=== PATIENT | male | born 1940 | race Caucasian/White ===

== ENCOUNTER 2018-02-07 13:11 | Outpatient (CLI) | payer MEDICARE ==
[~2018-02-07 13:11] MED LIST: ACET-2119 PO; AMIO200T40 PO; ASCO500C15 PO; BACI28.33 TOP; BARIUM SULFATE 340 ML SUSP.RECON***PROCEDURE AREA ONLY**DONT ENTER PO ONE; DOCU-28 PO; FINA5TAB11 PO; FLO0.4C PO; GENTAMICIN CREAM TP; HYDR25SU32 RC; INSU100V12 SQ; IRON150C5 PO; MYCOL15CR TOP; ZINO TP
[2018-02-07] MEDS ORDERED: SIMETHICONE/SOD BICARB/CIT AC PACKET PO ONE ×2 (14:06)
== END 2018-02-07 23:59 | disposition home or self-care (01) ==
LOC: RAD 13:11
PROVIDERS: ATTEND Otolaryngology
DX: I69.391 Dysphagia following cerebral infarction (principal); R13.12 Dysphagia, oropharyngeal phase; I69.322 Dysarthria following cerebral infarction; J38.2 Nodules of vocal cords; K21.9 Gastro-esophageal reflux disease without esophagitis; I25.2 Old myocardial infarction; I10 Essential (primary) hypertension; E11.9 Type 2 diabetes mellitus without complications; Z87.891 Personal history of nicotine dependence; Z79.4 Long term (current) use of insulin
CPT/HCPCS: 74220; 74230

== ENCOUNTER 2018-04-11 14:48 | Inpatient (IN) | payer MEDICARE ==
[~2018-04-11] VITALS: Ht 152.4 cm; Wt 76.7 kg
[~2018-04-11 14:48] MED LIST changes: -BARIUM SULFATE 340 ML SUSP.RECON***PROCEDURE AREA ONLY**DONT ENTER PO ONE
[2018-04-11] MEDS ORDERED: ondansetron/PF 4mg/2ml inj IV ONE (15:10)
[2018-04-11] MEDS ORDERED: normal saline 1000ML IV soln IVB ONE (15:10)
[2018-04-11 16:27] LABS: BASOPHILS % (AUTO) 0.2 % (0-1); EOSINOPHILS # (AUTO) 0.2 X10'3 (0-0.9); EOSINOPHILS % (AUTO) 3.2 % (0-6); HEMATOCRIT 35.3 % (42.0-52.0); HEMOGLOBIN 11.6 g/dl (14.0-17.9); LYMPHOCYTES # (AUTO) 0.7 X10'3 (1.1-4.8); LYMPHOCYTES % (AUTO) 14.6 % (21-51); MEAN CORPUSCULAR HEMOGLOBIN 28.9 PG (27.0-31.0); MEAN CORPUSCULAR HGB CONC 32.9 % (33.0-36.5); MEAN CORPUSCULAR VOLUME 87.7 FL (78-98); MEAN PLATELET VOLUME 7.3 FL (7.4-10.4); MONOCYTES # (AUTO) 0.4 X10'3 (0-0.9); MONOCYTES % (AUTO) 8.2 % (2-12); NEUTROPHILS # (AUTO) 3.7 X10'3 (1.8-7.7); NEUTROPHILS % (AUTO) 73.8 % (42-75); PLATELET COUNT 185 X10'3 (140-440); RED BLOOD COUNT 4.03 X10'6 (4.70-6.10); RED CELL DISTRIBUTION WIDTH 17.8 % (11.5-14.5); WHITE BLOOD COUNT 5.1 X10'3 (4.5-11.0)
[2018-04-11 17:07] LABS: CLARITY,URINE CLOUDY (Clear); COLOR,URINE YELLOW (Yellow); GLUCOSE, URINE NEGATIVE (Neg); KETONES,URINE NEGATIVE (Neg); LEUKOCYTE ESTERASE ,URINE LARGE (Neg); NITRITES, URINE NEGATIVE (Neg); OCCULT BLOOD,URINE LARGE (Neg); PH,URINE 5.5 (4.8-8.0); PROTEIN,URINE TRACE mg/dl (Neg); UROBILINOGEN,URINE 0.2 E.U/dL (0.2-1.0)
[2018-04-11 17:07] LABS: ALANINE AMINOTRANSFERASE 36 U/L (12-78); ALBUMIN 1.8 G/DL (3.4-5.0); ALBUMIN/GLOBULIN RATIO 0.2 (1.1-1.5); ALKALINE PHOSPHATASE 101 IU/L (46-116); ANION GAP 23 (8-16); ASPARTATE AMINO TRANSFERASE 30 U/L (10-37); BILIRUBIN,TOTAL 0.3 MG/DL (0.1-1.0); BLOOD UREA NITROGEN 101 MG/DL (7-18); BUN/CREATININE RATIO 10.5 (5.4-32.0); CALCIUM 9.4 MG/DL (8.5-10.1); CHLORIDE 93 MMOL/L (99-107); CREATININE 9.62 MG/DL (0.60-1.10); GLUCOSE 162 MG/DL (70-104); LIPASE 340 U/L (73-393); POTASSIUM 4.6 MMOL/L (3.5-5.1); SODIUM 135 MMOL/L (135-145); TOTAL CARBON DIOXIDE 19.5 MMOL/L (24-32); TOTAL PROTEIN 10.1 G/DL (6.4-8.2); TROPONIN I < 0.04 NG/ML (0.0-0.05); eGFR 5 ML/MIN
[2018-04-11 17:08] LABS: ETHANOL < 0.010 GM/DL (0.0-0.010)
[2018-04-11 17:10] LABS: UA COLLECTION TYPE CLN CATCH MIDSTREAM
[2018-04-11] MEDS ORDERED: normal saline 1000ML IV soln IV ONE (17:10)
[2018-04-11] MEDS ORDERED: CefTRIAXone/D5W-Rocephin 1gm 50 ML IV ONE (17:15)
[2018-04-11 17:18] LABS: WBC,URINE TNTC /HPF (0-4)
[2018-04-11 17:19] LABS: BACTERIA,URINE FEW /HPF (Neg); MUCUS STRANDS NONE SEEN /LPF (Neg); SQUAMOUS EPITHELIAL CELL,UR NONE SEEN /LPF (FEW); TRANSITIONAL EPI CELLS,URINE FEW /HPF; WBC CLUMPS,URINE MANY /HPF (NEGATIVE)
[2018-04-11] MEDS ORDERED: normal saline 1000ml 1,000 ML IV SCH (17:32)
[2018-04-11] MEDS ORDERED: glucagon, human recombinant 1mg kit SUBCUT PRN (17:35)
[2018-04-11] MEDS ORDERED: dextrose 50%-water 50ml dispensing syringe IV PRN ×2 (17:35)
[2018-04-11] MEDS ORDERED: dextrose ORAL solution 15 GM/59 ML bottle PO PRN (17:35)
[2018-04-11] MEDS ORDERED: acetaminophen 325mg tablet PO PRN (17:35)
[2018-04-11] MEDS ORDERED: mag hydrox/Alum hydrox/simeth 30ml oral suspension PO PRN (17:35)
[2018-04-11] MEDS ORDERED: MESSAGE TO PHARMACY PO ONE (17:35)
[2018-04-11] MEDS ORDERED: ondansetron/PF 4mg/2ml inj IV PRN (17:35)
[2018-04-11 17:59] LABS: PROTHROMBIN TIME 43.9 SECONDS (9.0-12.0)
[2018-04-11 18:00] LABS: INR 4.7 INR
--- NOTE | 2018-04-11 18:02 | NUR ---
LAB CALLED WITH WITH CRITICAL VALUE PT 43.9 AND INR 4.7. BLANCA BUCKLEY INFORMED.
[2018-04-11 18:08] LABS: HEMOGLOBIN A1C 7.7 % (4.5-6.2)
[2018-04-11] MEDS ORDERED: METF500T PO (18:51)
--- NOTE | 2018-04-11 19:58 | NUR ---
Call to Dr. Alvarenga to explain patient is having midstrenal CP reproducable W/ palpation. New order EKG now given ASA 324, Nitro 0.4mg PRN for CP, troponin Q6hrs x3.
[2018-04-11] MEDS: docusate sod 100mg capsule PO SCH (20:00)
[2018-04-11] MEDS: gentamicin 0.1% topical ointment 15gm TP SCH (20:00)
[2018-04-11] MEDS: zinc oxide ointment 30gm tube TP SCH (20:00)
[2018-04-11] MEDS: sodium bicarbonate (8.4%) inj. 100 MEQ in dextrose 5%-water 1,000 ML IV SCH (20:30)
[2018-04-11] MEDS: insulin glargine (Lantus) pen - multi-dose SQ SCH (21:00)
[2018-04-11] MEDS ORDERED: aspirin 81mg tab.chew PO ONE (21:45)
--- NOTE | 2018-04-11 21:45 | NUR ---
Patient in room [facility]. I have received report from ERNESTO Brand and had the opportunity to ask questions and assume patient care.
[2018-04-11 22:00] VITALS: BP 147/64
[2018-04-11] MEDS: lactobacillus rhamnosus 10,000 MMU CELLS/CAPSULE PO SCH (23:15)
--- NOTE | 2018-04-12 01:45 | NUR ---
Patient in room [facility]. I have received report from ERNESTO Restrepo and had the opportunity to ask questions and assume patient care. Addendum: 04/12/18 at 0347 by Abhinav Saucedo RN wrong patient
[2018-04-12] MEDS: sodium bicarbonate (8.4%) inj. 100 MEQ in dextrose 5%-water 1,000 ML IV SCH ×4 (03:27→20:25)
[2018-04-12 05:10] LABS: BASOPHILS % (AUTO) 0.2 % (0-1); EOSINOPHILS # (AUTO) 0.1 X10'3 (0-0.9); EOSINOPHILS % (AUTO) 2.3 % (0-6); LYMPHOCYTES # (AUTO) 0.9 X10'3 (1.1-4.8); LYMPHOCYTES % (AUTO) 16.4 % (21-51); MEAN CORPUSCULAR HEMOGLOBIN 29.1 PG (27.0-31.0); MEAN CORPUSCULAR HGB CONC 33.3 % (33.0-36.5); MEAN CORPUSCULAR VOLUME 87.4 FL (78-98); MEAN PLATELET VOLUME 7.9 FL (7.4-10.4); MONOCYTES # (AUTO) 0.4 X10'3 (0-0.9); MONOCYTES % (AUTO) 8.2 % (2-12); NEUTROPHILS # (AUTO) 3.9 X10'3 (1.8-7.7); NEUTROPHILS % (AUTO) 72.9 % (42-75); PLATELET COUNT 169 X10'3 (140-440); RED BLOOD COUNT 2.75 X10'6 (4.70-6.10); RED CELL DISTRIBUTION WIDTH 17.1 % (11.5-14.5); WHITE BLOOD COUNT 5.4 X10'3 (4.5-11.0)
[2018-04-12 05:31] LABS: ALBUMIN 1.3 G/DL (3.4-5.0); ANION GAP 16 (8-16); BLOOD UREA NITROGEN 87 MG/DL (7-18); BUN/CREATININE RATIO 10.8 (5.4-32.0); CALCIUM 8.2 MG/DL (8.5-10.1); CHLORIDE 97 MMOL/L (99-107); CREATININE 8.06 MG/DL (0.60-1.10); GLUCOSE 192 MG/DL (70-104); LACTATE DEHYDROGENASE 217 U/L (85-227); MAGNESIUM 2.1 MG/DL (1.5-2.4); PHOSPHORUS 3.6 MG/DL (2.3-4.5); POTASSIUM 4.5 MMOL/L (3.5-5.1); SODIUM 134 MMOL/L (135-145); TOTAL CARBON DIOXIDE 21.2 MMOL/L (24-32); TROPONIN I 0.36 NG/ML (0.0-0.05); eGFR 7 ML/MIN
--- NOTE | 2018-04-12 06:30 | NUR ---
Patient in room [facility]. I have received report from Abhinav OROZCO and had the opportunity to ask questions and assume patient care.
--- NOTE | 2018-04-12 06:55 | NUR ---
Night RN said that patient's blood sugar last night was 190 mg/dl around 21:00 - was not recorded so I am writing it down here
[2018-04-12 07:00] VITALS: BP 130/52
[2018-04-12] MEDS: zinc oxide ointment 30gm tube TP SCH ×2 (08:00→19:36)
[2018-04-12] MEDS: docusate sod 100mg capsule PO SCH ×2 (08:00→19:36)
[2018-04-12] MEDS: gentamicin 0.1% topical ointment 15gm TP SCH (08:00)
[2018-04-12] MEDS: CefTRIAXone/D5W-Rocephin 1gm 50 ML IV SCH (08:56)
[2018-04-12] MEDS: sevelamer carbonate 800mg tablet PO SCH ×3 (08:57→19:39)
[2018-04-12] MEDS: ascorbic acid 500mg tablet PO SCH (08:57)
[2018-04-12] MEDS: lactobacillus rhamnosus 10,000 MMU CELLS/CAPSULE PO SCH ×2 (08:57→19:30)
[2018-04-12] MEDS: tamsulosin 0.4mg capsule PO SCH (08:57)
[2018-04-12] MEDS: amiodarone 200mg tablet PO SCH (08:57)
[2018-04-12] MEDS: iron polysaccharide complex 150mg capsule PO SCH (08:58)
[2018-04-12] MEDS ORDERED: epoetin 20,000 units/ml inj SQ ONE (09:40)
--- NOTE | 2018-04-12 09:57 | NUR ---
Blood sugar this am was 198 mg/dl, would start on hyperglycemic protocol but humalog insulin not available. Message sent to pharmacy
[2018-04-12 11:00] VITALS: BP 108/52
--- NOTE | 2018-04-12 12:45 | NUR ---
Spoke to patient's son John (POA) updated him about patient's status and told him about the possibility of hemodialysis per kidney doctor. Per patient's son, patient's roommate/friend Juan is okay to receive information about patient's status. Patient's friend Juan came by and said that son John will be the one doing consent if needed
[2018-04-12] MEDS: finasteride 5mg tablet PO SCH (12:46)
[2018-04-12] MEDS: insulin Lispro (HumaLOG) vial - multi-dose SQ SCH (14:44)
--- NOTE | 2018-04-12 16:28 | NUR ---
DM consult: Pt with A1c 7.7. Attempted visit with pt at bedside however pt unavailable. Pt with diabetic ulcer to left lateral foot, will f/u with pt for DM and protein education. [place] consult: Pt reports wt loss of 6 # in this last month. Patient's current wt is up 8# from documented wt of 176# at previous visit 03/24/17. If pt truly lost 6# in 1 month this is non-severe wt loss of 4%. Pt with no documented edema. Pt currently on CHO controlled diet meeting nutrient needs. Pt currently does not meet criteria for malnutrition. [facility] 04/12. Will continue to follow. Addendum: 04/12/18 at [address] Amended: Links added.
[2018-04-12 18:00] VITALS: BP 121/59
--- NOTE | 2018-04-12 18:30 | NUR ---
Patient in room [facility]. I have received report from Wu OROZCO and had the opportunity to ask questions and assume patient care.
--- NOTE | 2018-04-12 18:42 | NUR ---
Problems reprioritized. Patient report given, questions answered & plan of care reviewed with Jennifer OROZCO.
[2018-04-12] MEDS: insulin glargine (Lantus) pen - multi-dose SQ SCH (21:36)
[2018-04-13] VITALS: BP 118/76
[2018-04-13] MEDS: acetaminophen 325mg tablet PO PRN ×2 (01:23→21:54)
[2018-04-13] MEDS: sodium bicarbonate (8.4%) inj. 100 MEQ in dextrose 5%-water 1,000 ML IV SCH ×3 (01:48)
--- NOTE | 2018-04-13 06:43 | NUR ---
Problems reprioritized. Patient report given, questions answered & plan of care reviewed with Becka OROZCO.
[2018-04-13 06:54] LABS: BASOPHILS % (AUTO) 0.4 % (0-1); EOSINOPHILS # (AUTO) 0.1 X10'3 (0-0.9); EOSINOPHILS % (AUTO) 2.8 % (0-6); HEMATOCRIT 24.9 % (42.0-52.0); HEMOGLOBIN 8.2 g/dl (14.0-17.9); LYMPHOCYTES # (AUTO) 0.8 X10'3 (1.1-4.8); LYMPHOCYTES % (AUTO) 16.9 % (21-51); MEAN CORPUSCULAR HEMOGLOBIN 28.4 PG (27.0-31.0); MEAN CORPUSCULAR HGB CONC 32.9 % (33.0-36.5); MEAN CORPUSCULAR VOLUME 86.2 FL (78-98); MEAN PLATELET VOLUME 7.7 FL (7.4-10.4); MONOCYTES # (AUTO) 0.5 X10'3 (0-0.9); MONOCYTES % (AUTO) 9.2 % (2-12); NEUTROPHILS # (AUTO) 3.5 X10'3 (1.8-7.7); NEUTROPHILS % (AUTO) 70.7 % (42-75); PLATELET COUNT 146 X10'3 (140-440); RED BLOOD COUNT 2.88 X10'6 (4.70-6.10); RED CELL DISTRIBUTION WIDTH 16.6 % (11.5-14.5); WHITE BLOOD COUNT 4.9 X10'3 (4.5-11.0)
[2018-04-13 07:53] VITALS: BP 120/55
[2018-04-13] MEDS: CefTRIAXone/D5W-Rocephin 1gm 50 ML IV SCH (07:56)
[2018-04-13] MEDS: sevelamer carbonate 800mg tablet PO SCH ×3 (07:57→18:14)
[2018-04-13] MEDS: tamsulosin 0.4mg capsule PO SCH ×2 (07:57→20:32)
[2018-04-13] MEDS: docusate sod 100mg capsule PO SCH ×2 (07:57→20:32)
[2018-04-13] MEDS: amiodarone 200mg tablet PO SCH (07:58)
[2018-04-13] MEDS: iron polysaccharide complex 150mg capsule PO SCH (07:58)
[2018-04-13] MEDS: lactobacillus rhamnosus 10,000 MMU CELLS/CAPSULE PO SCH ×2 (07:58→20:31)
[2018-04-13] MEDS: finasteride 5mg tablet PO SCH (07:59)
[2018-04-13] MEDS: ascorbic acid 500mg tablet PO SCH (07:59)
[2018-04-13] MEDS: zinc oxide ointment 30gm tube TP SCH ×2 (08:00→20:00)
[2018-04-13 08:41] LABS: ALBUMIN 1.2 G/DL (3.4-5.0); BLOOD UREA NITROGEN 73 MG/DL (7-18); BUN/CREATININE RATIO 10.6 (5.4-32.0); CALCIUM 7.2 MG/DL (8.5-10.1); CREATININE 6.88 MG/DL (0.60-1.10); GLUCOSE 154 MG/DL (70-104); MAGNESIUM 1.5 MG/DL (1.5-2.4); PHOSPHORUS 2.5 MG/DL (2.3-4.5); eGFR 8 ML/MIN
[2018-04-13 09:01] LABS: CHLORIDE 91 MMOL/L (99-107); POTASSIUM 3.5 MMOL/L (3.5-5.1); SODIUM 133 MMOL/L (135-145)
[2018-04-13 09:21] LABS: ANION GAP 12 (8-16); TOTAL CARBON DIOXIDE 30.5 MMOL/L (24-32)
[2018-04-13] MEDS: insulin Lispro (HumaLOG) vial - multi-dose SQ SCH ×2 (10:20→13:22)
[2018-04-13 11:18] VITALS: BP 129/60
[2018-04-13] MEDS ORDERED: normal saline 1000ml 100 ML IV PRN (13:17)
[2018-04-13] MEDS ORDERED: epoetin 20,000 units/ml inj IV ONE (13:20)
[2018-04-13] MEDS ORDERED: LIDOcaine 1%/PF 5ML 10 MG/ML VIAL ONE ×2 (13:24→14:03)
--- NOTE | 2018-04-13 13:30 | NUR ---
Patient back from IR received a Hermes Cath for temporary dialysis. Per Tisha GU RN no medication was given in IR. Patient alert and stable.
[2018-04-13] MEDS ORDERED: phytonadione inj. 5 MG in normal saline 100ml IV soln 99.5 ML IV ONE (13:35)
[2018-04-13 13:39] LABS: TOTAL PROTEIN,URINE RANDOM 30.4 MG/DL
[2018-04-13] MEDS ORDERED: heparin 1,000unit/ml 10ml vial 10 ML ONE (14:04)
[2018-04-13 15:46] LABS: UA EOSINOPHILS NO EOS /HPF
[2018-04-13] MEDS: dextrose ORAL solution 15 GM/59 ML bottle PO PRN ×2 (17:19→17:35)
--- NOTE | 2018-04-13 17:28 | NUR ---
Paatient had a blood sugar of 66 15 mg of dex 4 given PO
--- NOTE | 2018-04-13 17:50 | NUR ---
Michele callahan RD for written/verbal DM ed. DAVID contact information provided. Addendum: 04/13/18 at [address] Amended: Links added.
--- NOTE | 2018-04-13 17:54 | NUR ---
Patients blood sugar was 64 after the first 15 mg of dex 4. Patients blood sugar was 85 after the second dose of Dex 4 patient alert and oriented.
[2018-04-13 18:00] VITALS: BP 132/51
--- NOTE | 2018-04-13 18:15 | NUR ---
Patient in room [facility]. I have received report from Becka OROZCO and had the opportunity to ask questions and assume patient care.
--- NOTE | 2018-04-13 18:15 | NUR ---
Problems reprioritized. Patient report given, Jennifer OROZCO questions answered & plan of care reviewed with . Patient in be finishing dinner
[2018-04-13] MEDS ORDERED: heparin 1,000 units/ml 10ml inj HE ONE ×2 (19:50)
[2018-04-13] MEDS: insulin glargine (Lantus) pen - multi-dose SQ SCH (21:56)
[2018-04-14] VITALS: BP 100/51
--- NOTE | 2018-04-14 00:09 | NUR ---
Problems reprioritized. Patient report given, questions answered & plan of care reviewed with Carly OROZCO.
--- NOTE | 2018-04-14 00:15 | NUR ---
Patient in room [facility]. I have received report from DOV OROZCO and had the opportunity to ask questions and assume patient care.
[2018-04-14 05:15] LABS: COMPLEMENT C4, SERUM 27 mg/dL (14-44)
--- NOTE | 2018-04-14 06:14 | NUR ---
Problems reprioritized. Patient report given, questions answered & plan of care reviewed with SALIMA OROZCO.
[2018-04-14 06:46] VITALS: BP 127/73
[2018-04-14 06:46] LABS: ALBUMIN 1.2 G/DL (3.4-5.0); ANION GAP 11 (8-16); BASOPHILS % (AUTO) 0.2 % (0-1); BLOOD UREA NITROGEN 56 MG/DL (7-18); BUN/CREATININE RATIO 10.1 (5.4-32.0); CHLORIDE 94 MMOL/L (99-107); CREATININE 5.57 MG/DL (0.60-1.10); EOSINOPHILS # (AUTO) 0.1 X10'3 (0-0.9); EOSINOPHILS % (AUTO) 1.6 % (0-6); GLUCOSE 74 MG/DL (70-104); HEMATOCRIT 29.2 % (42.0-52.0); HEMOGLOBIN 9.8 g/dl (14.0-17.9); LYMPHOCYTES # (AUTO) 0.7 X10'3 (1.1-4.8); MAGNESIUM 1.7 MG/DL (1.5-2.4); MEAN CORPUSCULAR HEMOGLOBIN 29.6 PG (27.0-31.0); MEAN CORPUSCULAR HGB CONC 33.5 % (33.0-36.5); MEAN CORPUSCULAR VOLUME 88.4 FL (78-98); MEAN PLATELET VOLUME 8.3 FL (7.4-10.4); MONOCYTES # (AUTO) 0.4 X10'3 (0-0.9); NEUTROPHILS # (AUTO) 5.4 X10'3 (1.8-7.7); NEUTROPHILS % (AUTO) 81.2 % (42-75); PHOSPHORUS 2.6 MG/DL (2.3-4.5); PLATELET COUNT 139 X10'3 (140-440); POTASSIUM 3.9 MMOL/L (3.5-5.1); RED BLOOD COUNT 3.31 X10'6 (4.70-6.10); RED CELL DISTRIBUTION WIDTH 16.3 % (11.5-14.5); SODIUM 136 MMOL/L (135-145); TOTAL CARBON DIOXIDE 31.2 MMOL/L (24-32); WHITE BLOOD COUNT 6.7 X10'3 (4.5-11.0); eGFR 10 ML/MIN
[2018-04-14 06:57] LABS: INR 2.7 INR; PARTIAL THROMBOPLASTIN TIME 56 SECONDS (22-32); PROTHROMBIN TIME 26.4 SECONDS (9.0-12.0)
[2018-04-14 07:10] LABS: IMMUNOGLOBULIN A, QN, SERUM 3527 mg/dL (61-437); IMMUNOGLOBULIN G, QN, SERUM 208 mg/dL (700-1600); IMMUNOGLOBULIN M, QN, SERUM 11 mg/dL (15-143)
[2018-04-14] MEDS: sevelamer carbonate 800mg tablet PO SCH ×3 (08:00→18:02)
[2018-04-14] MEDS: docusate sod 100mg capsule PO SCH ×2 (08:09→20:06)
[2018-04-14] MEDS: amiodarone 200mg tablet PO SCH (08:09)
[2018-04-14] MEDS: CefTRIAXone/D5W-Rocephin 1gm 50 ML IV SCH (08:09)
[2018-04-14] MEDS: ascorbic acid 500mg tablet PO SCH (08:09)
[2018-04-14] MEDS: finasteride 5mg tablet PO SCH (08:14)
[2018-04-14] MEDS: zinc oxide ointment 30gm tube TP SCH ×2 (08:14→20:06)
[2018-04-14] MEDS: iron polysaccharide complex 150mg capsule PO SCH ×2 (08:14→08:19)
[2018-04-14] MEDS: tamsulosin 0.4mg capsule PO SCH ×2 (08:19→20:06)
[2018-04-14] MEDS: lactobacillus rhamnosus 10,000 MMU CELLS/CAPSULE PO SCH ×2 (08:19→20:06)
[2018-04-14 11:30] VITALS: BP 102/52
--- NOTE | 2018-04-14 18:55 | NUR ---
gave report to roro springer
--- NOTE | 2018-04-14 18:56 | NUR ---
Patient in room [facility]. I have received report from SALIMA OROZCO and had the opportunity to ask questions and assume patient care.
[2018-04-14 19:00] VITALS: BP 130/68
[2018-04-14] MEDS: insulin glargine (Lantus) pen - multi-dose SQ SCH (21:35)
--- NOTE | 2018-04-14 23:40 | NUR ---
Pt. was not able to urinate, bladder scan done, 265 cc noted, then Pt. voided 100 cc.
[2018-04-15] VITALS: BP 132/64
--- NOTE | 2018-04-15 05:47 | NUR ---
Voided 150 cc, bladder scan 315 cc.
[2018-04-15 06:12] LABS: BASOPHILS # (AUTO) 0.1 X10'3 (0-0.2); BASOPHILS % (AUTO) 1.2 % (0-1); EOSINOPHILS # (AUTO) 0.1 X10'3 (0-0.9); EOSINOPHILS % (AUTO) 1.4 % (0-6); HEMOGLOBIN 10.2 g/dl (14.0-17.9); LYMPHOCYTES # (AUTO) 0.6 X10'3 (1.1-4.8); LYMPHOCYTES % (AUTO) 11.3 % (21-51); MEAN CORPUSCULAR HEMOGLOBIN 28.2 PG (27.0-31.0); MEAN CORPUSCULAR HGB CONC 31.9 % (33.0-36.5); MEAN CORPUSCULAR VOLUME 88.3 FL (78-98); MEAN PLATELET VOLUME 8.2 FL (7.4-10.4); MONOCYTES # (AUTO) 0.3 X10'3 (0-0.9); MONOCYTES % (AUTO) 5.9 % (2-12); NEUTROPHILS # (AUTO) 4.6 X10'3 (1.8-7.7); NEUTROPHILS % (AUTO) 80.2 % (42-75); PLATELET COUNT 159 X10'3 (140-440); RED BLOOD COUNT 3.62 X10'6 (4.70-6.10); RED CELL DISTRIBUTION WIDTH 16.7 % (11.5-14.5); WHITE BLOOD COUNT 5.7 X10'3 (4.5-11.0)
[2018-04-15 06:21] LABS: PARTIAL THROMBOPLASTIN TIME 49 SECONDS (22-32); PROTHROMBIN TIME 19.5 SECONDS (9.0-12.0)
[2018-04-15 06:24] LABS: ALANINE AMINOTRANSFERASE 26 U/L (12-78); ALBUMIN 1.2 G/DL (3.4-5.0); ALBUMIN/GLOBULIN RATIO 0.2 (1.1-1.5); ALKALINE PHOSPHATASE 85 IU/L (46-116); ANION GAP 11 (8-16); ASPARTATE AMINO TRANSFERASE 33 U/L (10-37); BILIRUBIN,TOTAL 0.3 MG/DL (0.1-1.0); BLOOD UREA NITROGEN 56 MG/DL (7-18); BUN/CREATININE RATIO 9.9 (5.4-32.0); CALCIUM 8.5 MG/DL (8.5-10.1); CHLORIDE 94 MMOL/L (99-107); CREATININE 5.68 MG/DL (0.60-1.10); GLUCOSE 106 MG/DL (70-104); MAGNESIUM 1.8 MG/DL (1.5-2.4); PHOSPHORUS 2.6 MG/DL (2.3-4.5); SODIUM 135 MMOL/L (135-145); TOTAL CARBON DIOXIDE 30.2 MMOL/L (24-32); TOTAL PROTEIN 8.1 G/DL (6.4-8.2); eGFR 10 ML/MIN
[2018-04-15 06:34] LABS: POTASSIUM 4.1 MMOL/L (3.5-5.1)
--- NOTE | 2018-04-15 06:50 | NUR ---
Problems reprioritized. Patient report given, questions answered & plan of care reviewed with Ceci James.
--- NOTE | 2018-04-15 06:55 | NUR ---
I have received report from David OROZCO and had the opportunity to ask questions and assume patient care.
[2018-04-15 07:08] VITALS: BP 138/69
[2018-04-15] MEDS: CefTRIAXone/D5W-Rocephin 1gm 50 ML IV SCH (07:43)
[2018-04-15] MEDS: ascorbic acid 500mg tablet PO SCH (07:44)
[2018-04-15] MEDS: finasteride 5mg tablet PO SCH (07:44)
[2018-04-15] MEDS: lactobacillus rhamnosus 10,000 MMU CELLS/CAPSULE PO SCH ×2 (07:45→19:09)
[2018-04-15] MEDS: docusate sod 100mg capsule PO SCH ×2 (07:45→19:09)
[2018-04-15] MEDS: tamsulosin 0.4mg capsule PO SCH ×3 (07:45→20:52)
[2018-04-15] MEDS: sevelamer carbonate 800mg tablet PO SCH ×3 (07:45→19:09)
[2018-04-15] MEDS: zinc oxide ointment 30gm tube TP SCH ×2 (08:00→19:10)
[2018-04-15] MEDS: amiodarone 200mg tablet PO SCH (08:05)
--- NOTE | 2018-04-15 09:41 | NUR ---
Patient states that he eats slow and just finished, correctional insulin will be given now.
[2018-04-15] MEDS: insulin Lispro (HumaLOG) vial - multi-dose SQ SCH ×2 (09:46→14:26)
[2018-04-15 12:00] VITALS: BP 110/56
--- NOTE | 2018-04-15 13:20 | NUR ---
Initial: Pt PO 75% avg renal/carb controlled meals.. Will need long-term HD per MD note for renal failure. Likely multiple myeloma per MD note. LBM 04/14 on colace. Will continue to monitor. Rec: 1. continue carb controlled/renal diet 2. monitor for ONS needs 3. wt per rx Addendum: 04/15/18 at [address] Amended: Links added.
--- NOTE | 2018-04-15 16:01 | NUR ---
bladder scan post void 403
[2018-04-15] MEDS ORDERED: levoFLOXACIN-Levaquin 500mg/D5 100 ML IV ONE (16:30)
[2018-04-15] MEDS: ipratropium/albuterol 3ml nebule NEB SCH ×3 (17:30→23:42)
[2018-04-15 18:00] VITALS: BP 126/65
--- NOTE | 2018-04-15 18:18 | NUR ---
Problems reprioritized. Patient report given, questions answered & plan of care reviewed with Jennifer OROZCO.
--- NOTE | 2018-04-15 18:30 | NUR ---
Patient in room [facility]. I have received report from Ceci OROZCO and had the opportunity to ask questions and assume patient care.
[2018-04-15] MEDS: acetaminophen 325mg tablet PO PRN (19:10)
[2018-04-15] MEDS: insulin glargine (Lantus) pen - multi-dose SQ SCH (21:20)
[2018-04-16] VITALS (7 sets, daily range): BP systolic 96–114; BP diastolic 51–92
[2018-04-16] MEDS: ipratropium/albuterol 3ml nebule NEB SCH ×6 (03:37→23:00)
--- NOTE | 2018-04-16 04:05 | NUR ---
Voided 100ml, bladder scan showed 497ml. Patient stated he is not uncomfortable and refused straight cath. Will reassess in 1 hour.
--- NOTE | 2018-04-16 05:02 | NUR ---
Bladder scan showed 506ml. Explained to pt he might feel better if his bladder was emptying, pt states not uncomfortable. Pt refused straight cath for a second time.
[2018-04-16 05:24] LABS: BASOPHILS % (AUTO) 0.3 % (0-1); EOSINOPHILS # (AUTO) 0.1 X10'3 (0-0.9); EOSINOPHILS % (AUTO) 1.3 % (0-6); HEMATOCRIT 26.6 % (42.0-52.0); HEMOGLOBIN 8.9 g/dl (14.0-17.9); LYMPHOCYTES # (AUTO) 0.9 X10'3 (1.1-4.8); LYMPHOCYTES % (AUTO) 17.9 % (21-51); MEAN CORPUSCULAR HEMOGLOBIN 29.9 PG (27.0-31.0); MEAN CORPUSCULAR HGB CONC 33.7 % (33.0-36.5); MEAN CORPUSCULAR VOLUME 88.8 FL (78-98); MEAN PLATELET VOLUME 8.1 FL (7.4-10.4); MONOCYTES # (AUTO) 0.4 X10'3 (0-0.9); MONOCYTES % (AUTO) 9.4 % (2-12); NEUTROPHILS # (AUTO) 3.4 X10'3 (1.8-7.7); NEUTROPHILS % (AUTO) 71.1 % (42-75); PLATELET COUNT 137 X10'3 (140-440); RED BLOOD COUNT 2.99 X10'6 (4.70-6.10); RED CELL DISTRIBUTION WIDTH 16.5 % (11.5-14.5); WHITE BLOOD COUNT 4.8 X10'3 (4.5-11.0)
[2018-04-16 05:55] LABS: ALBUMIN 1.1 G/DL (3.4-5.0); ANION GAP 11 (8-16); BLOOD UREA NITROGEN 52 MG/DL (7-18); BUN/CREATININE RATIO 9.5 (5.4-32.0); CHLORIDE 95 MMOL/L (99-107); CREATININE 5.49 MG/DL (0.60-1.10); GLUCOSE 86 MG/DL (70-104); MAGNESIUM 1.7 MG/DL (1.5-2.4); PHOSPHORUS 2.3 MG/DL (2.3-4.5); POTASSIUM 3.8 MMOL/L (3.5-5.1); SODIUM 135 MMOL/L (135-145); TOTAL CARBON DIOXIDE 29.5 MMOL/L (24-32); eGFR 10 ML/MIN
[2018-04-16 06:11] LABS: INR 1.6 INR; PARTIAL THROMBOPLASTIN TIME 48 SECONDS (22-32); PROTHROMBIN TIME 15.9 SECONDS (9.0-12.0)
--- NOTE | 2018-04-16 06:30 | NUR ---
Patient in room [facility]. I have received report from ERNESTO MONAE and had the opportunity to ask questions and assume patient care.
--- NOTE | 2018-04-16 06:34 | NUR ---
Problems reprioritized. Patient report given, questions answered & plan of care reviewed with Madiha OROZCO.
[2018-04-16] MEDS: lactobacillus rhamnosus 10,000 MMU CELLS/CAPSULE PO SCH ×2 (07:42→21:40)
[2018-04-16] MEDS: iron polysaccharide complex 150mg capsule PO SCH (07:42)
[2018-04-16] MEDS: sevelamer carbonate 800mg tablet PO SCH ×3 (07:42→18:00)
[2018-04-16] MEDS: ascorbic acid 500mg tablet PO SCH (07:42)
[2018-04-16] MEDS: tamsulosin 0.4mg capsule PO SCH ×3 (07:42→21:40)
[2018-04-16] MEDS: amiodarone 200mg tablet PO SCH (07:42)
[2018-04-16] MEDS: docusate sod 100mg capsule PO SCH ×2 (07:42→21:40)
[2018-04-16] MEDS: finasteride 5mg tablet PO SCH (08:00)
[2018-04-16] MEDS: zinc oxide ointment 30gm tube TP SCH ×2 (08:00→20:00)
[2018-04-16] MEDS ORDERED: midazolam 2 mg/2 ml injection IV PRN (10:10)
[2018-04-16] MEDS ORDERED: normal saline 1000ml 1,000 ML IV SCH (10:10)
[2018-04-16] MEDS ORDERED: fentaNYL/PF 50MCG/1 ML 2ML syringe IV PRN (10:10)
[2018-04-16] MEDS ORDERED: LIDOcaine 1%/PF 5ML 10 MG/ML VIAL SQ ONE (10:10)
[2018-04-16] MEDS ORDERED: heparin 1,000 units/ml 10ml inj ICATH ONE (10:30)
[2018-04-16] MEDS ORDERED: heparin 1,000unit/ml 10ml vial 10 ML ONE (10:32)
[2018-04-16] MEDS ORDERED: fentaNYL/PF 50MCG/1 ML 2ML syringe ONE (10:32)
[2018-04-16] MEDS ORDERED: LIDOcaine 1%/PF 5ML 10 MG/ML VIAL ONE (10:32)
[2018-04-16] MEDS ORDERED: midazolam 2 mg/2 ml injection ONE (10:32)
[2018-04-16] MEDS ORDERED: heparin 1,000unit/ml 10ml vial 10 ML IV ONE (12:07)
[2018-04-16] MEDS ORDERED: normal saline 1000ml 250 ML IV PRN (12:07)
[2018-04-16] MEDS ORDERED: epoetin 20,000 units/ml inj IV ONE (12:10)
[2018-04-16] MEDS ORDERED: heparin 1,000 units/ml 10ml inj HE ONE ×2 (12:15)
[2018-04-16] MEDS: insulin Lispro (HumaLOG) vial - multi-dose SQ SCH (13:10)
--- NOTE | 2018-04-16 18:11 | NUR ---
Problems reprioritized. Patient report given, questions answered & plan of care reviewed with ENRIKE CALVERT RN.
--- NOTE | 2018-04-16 18:30 | NUR ---
Patient in room [facility]. I have received report from NOMI OROZCO and had the opportunity to ask questions and assume patient care.
--- NOTE | 2018-04-16 19:59 | NUR ---
PATIENT RING Mr Sobeida says he sent his ring home with his son. He is keeping his watch but his ring has been sent home with his son. I spoke with the son r/t an ID wallet... I checked w/ ER lost and found, [facility] lost and found, and our lost and found. Nothing was found. Lashonda FRACISCO checked through his belongings for his wallet but it was not found. It had SS card, ID and insurance card in it as well as other items.
[2018-04-16] MEDS: insulin glargine (Lantus) pen - multi-dose SQ SCH (22:20)
[2018-04-17] VITALS: BP 115/55
--- NOTE | 2018-04-17 01:00 | NUR ---
PATIENT VOIDED 200 ML WITH RESIDUAL OF 230 ML. PATIENT REFUSED TO HAVE [facility] CATH PLACED.
[2018-04-17] MEDS: ipratropium/albuterol 3ml nebule NEB SCH ×6 (03:00→23:13)
[2018-04-17 05:46] LABS: INR 1.4 INR; PARTIAL THROMBOPLASTIN TIME 40 SECONDS (22-32); PROTHROMBIN TIME 14.2 SECONDS (9.0-12.0)
--- NOTE | 2018-04-17 06:28 | NUR ---
Problems reprioritized. Patient report given, questions answered & plan of care reviewed with RAYMUNDO OROZCO.
--- NOTE | 2018-04-17 06:30 | NUR ---
Patient in room [facility]. I have received report from ERNESTO Carroll and had the opportunity to ask questions and assume patient care.
[2018-04-17 07:00] VITALS: BP 109/47
[2018-04-17] MEDS: zinc oxide ointment 30gm tube TP SCH ×2 (08:00→20:00)
[2018-04-17] MEDS ORDERED: levoFLOXACIN-Levaquin 250mg/D5 50 ML IV SCH (08:00)
--- NOTE | 2018-04-17 09:00 | NUR ---
Spoke to patient regarding a burnett catheter. Patient still doesn't want one. He has a condom catheter on now but hasn't had any output. Will continue to monitor. Patient also received dialysis yesterday for the first time so he may not be making as much urine as before.
[2018-04-17] MEDS: docusate sod 100mg capsule PO SCH ×2 (09:06→20:20)
[2018-04-17] MEDS: amiodarone 200mg tablet PO SCH (09:06)
[2018-04-17] MEDS: iron polysaccharide complex 150mg capsule PO SCH (09:07)
[2018-04-17] MEDS: tamsulosin 0.4mg capsule PO SCH ×3 (09:07→20:20)
[2018-04-17] MEDS: lactobacillus rhamnosus 10,000 MMU CELLS/CAPSULE PO SCH ×2 (09:07→20:20)
[2018-04-17] MEDS: finasteride 5mg tablet PO SCH (09:07)
[2018-04-17] MEDS: sevelamer carbonate 800mg tablet PO SCH ×3 (09:09→17:45)
[2018-04-17] MEDS: ascorbic acid 500mg tablet PO SCH (09:10)
[2018-04-17] MEDS: insulin Lispro (HumaLOG) vial - multi-dose SQ SCH ×3 (09:41→19:18)
[2018-04-17 11:10] VITALS: BP 116/52
[2018-04-17 12:47] LABS: ALANINE AMINOTRANSFERASE 20 U/L (12-78); ALBUMIN 1.2 G/DL (3.4-5.0); ALBUMIN/GLOBULIN RATIO 0.2 (1.1-1.5); ALKALINE PHOSPHATASE 77 IU/L (46-116); ANION GAP 12 (8-16); ASPARTATE AMINO TRANSFERASE 22 U/L (10-37); BILIRUBIN,TOTAL 0.4 MG/DL (0.1-1.0); BLOOD UREA NITROGEN 26 MG/DL (7-18); BUN/CREATININE RATIO 6.9 (5.4-32.0); CALCIUM 8.5 MG/DL (8.5-10.1); CHLORIDE 94 MMOL/L (99-107); CREATININE 3.76 MG/DL (0.60-1.10); GLUCOSE 197 MG/DL (70-104); MAGNESIUM 1.7 MG/DL (1.5-2.4); PHOSPHORUS 1.8 MG/DL (2.3-4.5); POTASSIUM 3.9 MMOL/L (3.5-5.1); SODIUM 134 MMOL/L (135-145); TOTAL PROTEIN 7.8 G/DL (6.4-8.2); eGFR 16 ML/MIN
--- NOTE | 2018-04-17 18:00 | NUR ---
Problems reprioritized. Patient report given, questions answered & plan of care reviewed with ERNESTO Carroll.
--- NOTE | 2018-04-17 18:30 | NUR ---
Patient in room [facility]. I have received report from RAYMUNDO OROZCO and had the opportunity to ask questions and assume patient care.
[2018-04-17 20:00] VITALS: BP 124/61
[2018-04-17] MEDS: insulin glargine (Lantus) pen - multi-dose SQ SCH (21:49)
[2018-04-18] VITALS: BP 125/84
[2018-04-18] MEDS: ipratropium/albuterol 3ml nebule NEB SCH ×5 (03:03→19:44)
--- NOTE | 2018-04-18 06:30 | NUR ---
Problems reprioritized. Patient report given, questions answered & plan of care reviewed with PRAMOD OROZCO.
[2018-04-18 06:38] LABS: INR 1.3 INR; PARTIAL THROMBOPLASTIN TIME 38 SECONDS (22-32); PROTHROMBIN TIME 13.4 SECONDS (9.0-12.0)
[2018-04-18 06:47] LABS: ALANINE AMINOTRANSFERASE 15 U/L (12-78); ALBUMIN 1.2 G/DL (3.4-5.0); ALBUMIN/GLOBULIN RATIO 0.2 (1.1-1.5); ALKALINE PHOSPHATASE 63 IU/L (46-116); ANION GAP 11 (8-16); ASPARTATE AMINO TRANSFERASE 18 U/L (10-37); BILIRUBIN,TOTAL 0.4 MG/DL (0.1-1.0); BLOOD UREA NITROGEN 28 MG/DL (7-18); BUN/CREATININE RATIO 6.8 (5.4-32.0); CALCIUM 8.5 MG/DL (8.5-10.1); CHLORIDE 96 MMOL/L (99-107); CREATININE 4.09 MG/DL (0.60-1.10); GLUCOSE 129 MG/DL (70-104); MAGNESIUM 1.7 MG/DL (1.5-2.4); POTASSIUM 3.8 MMOL/L (3.5-5.1); SODIUM 135 MMOL/L (135-145); TOTAL CARBON DIOXIDE 28.4 MMOL/L (24-32); TOTAL PROTEIN 7.3 G/DL (6.4-8.2); eGFR 14 ML/MIN
[2018-04-18 07:07] VITALS: BP 120/53
--- NOTE | 2018-04-18 07:12 | NUR ---
Patient in room [facility]. I have received report from Selma Hahn RN and had the opportunity to ask questions and assume patient care.
[2018-04-18] MEDS: ascorbic acid 500mg tablet PO SCH (08:12)
[2018-04-18] MEDS: lactobacillus rhamnosus 10,000 MMU CELLS/CAPSULE PO SCH ×2 (08:12→21:05)
[2018-04-18] MEDS: tamsulosin 0.4mg capsule PO SCH ×3 (08:12→21:05)
[2018-04-18] MEDS: iron polysaccharide complex 150mg capsule PO SCH (08:12)
[2018-04-18] MEDS: zinc oxide ointment 30gm tube TP SCH ×2 (08:12→21:15)
[2018-04-18] MEDS: sevelamer carbonate 800mg tablet PO SCH ×3 (08:12→17:22)
[2018-04-18] MEDS: amiodarone 200mg tablet PO SCH (08:12)
[2018-04-18] MEDS: docusate sod 100mg capsule PO SCH ×2 (08:12→21:05)
[2018-04-18] MEDS: finasteride 5mg tablet PO SCH (08:12)
[2018-04-18 11:00] VITALS: BP 125/55
[2018-04-18 11:10] LABS: A/G RATIO 0.4 (0.7-1.7); ALBUMIN 2.2 g/dL (2.9-4.4); BETA GLOBULIN 0.4 g/dL (0.7-1.3); GAMMA GLOBULIN 0.3 g/dL (0.4-1.8); M-SPIKE 3.7 g/dL (Not Observed); PROTEIN, TOTAL, SERUM 7.2 g/dL (6.0-8.5)
[2018-04-18] MEDS: levoFLOXACIN 250mg tablet PO SCH (11:30)
[2018-04-18] MEDS: insulin Lispro (HumaLOG) vial - multi-dose SQ SCH ×2 (13:34→19:17)
--- NOTE | 2018-04-18 18:16 | NUR ---
Problems reprioritized. Patient report given, questions answered & plan of care reviewed with Selma Hahn RN.
--- NOTE | 2018-04-18 18:30 | NUR ---
Patient in room [facility]. I have received report from PRAMOD OROZCO and had the opportunity to ask questions and assume patient care.
[2018-04-18 20:00] VITALS: BP 126/64
[2018-04-18] MEDS: insulin glargine (Lantus) pen - multi-dose SQ SCH (21:13)
[2018-04-19] VITALS: BP 109/46
[2018-04-19] MEDS: ipratropium/albuterol 3ml nebule NEB SCH ×7 (00:08→23:00)
[2018-04-19 06:02] LABS: ALANINE AMINOTRANSFERASE 13 U/L (12-78); ALBUMIN 1.1 G/DL (3.4-5.0); ALBUMIN/GLOBULIN RATIO 0.2 (1.1-1.5); ALKALINE PHOSPHATASE 74 IU/L (46-116); ANION GAP 12 (8-16); ASPARTATE AMINO TRANSFERASE 19 U/L (10-37); BILIRUBIN,TOTAL 0.4 MG/DL (0.1-1.0); BLOOD UREA NITROGEN 32 MG/DL (7-18); BUN/CREATININE RATIO 7.5 (5.4-32.0); CALCIUM 8.5 MG/DL (8.5-10.1); CHLORIDE 95 MMOL/L (99-107); CREATININE 4.28 MG/DL (0.60-1.10); GLUCOSE 142 MG/DL (70-104); MAGNESIUM 1.7 MG/DL (1.5-2.4); PHOSPHORUS 1.9 MG/DL (2.3-4.5); POTASSIUM 3.8 MMOL/L (3.5-5.1); SODIUM 132 MMOL/L (135-145); TOTAL PROTEIN 7.4 G/DL (6.4-8.2); eGFR 13 ML/MIN
--- NOTE | 2018-04-19 06:30 | NUR ---
Problems reprioritized. Patient report given, questions answered & plan of care reviewed with PRAMOD OROZCO.
--- NOTE | 2018-04-19 06:42 | NUR ---
Patient in room [facility]. I have received report from Selma Hahn RN and had the opportunity to ask questions and assume patient care.
[2018-04-19] MEDS: sevelamer carbonate 800mg tablet PO SCH ×3 (07:59→17:25)
[2018-04-19] MEDS: docusate sod 100mg capsule PO SCH ×2 (07:59→19:10)
[2018-04-19] MEDS: ascorbic acid 500mg tablet PO SCH (07:59)
[2018-04-19] MEDS: tamsulosin 0.4mg capsule PO SCH ×3 (07:59→21:06)
[2018-04-19] MEDS: iron polysaccharide complex 150mg capsule PO SCH (07:59)
[2018-04-19] MEDS: amiodarone 200mg tablet PO SCH (07:59)
[2018-04-19] MEDS: lactobacillus rhamnosus 10,000 MMU CELLS/CAPSULE PO SCH ×2 (07:59→19:10)
[2018-04-19 08:00] VITALS: BP 104/48
[2018-04-19] MEDS: magnesium hydroxide 30ml (MOM) UD suspension PO PRN (08:00)
[2018-04-19] MEDS: finasteride 5mg tablet PO SCH (08:00)
[2018-04-19] MEDS: zinc oxide ointment 30gm tube TP SCH ×2 (08:00→19:10)
[2018-04-19] MEDS: insulin Lispro (HumaLOG) vial - multi-dose SQ SCH ×2 (08:45→19:12)
[2018-04-19] MEDS: levoFLOXACIN 250mg tablet PO SCH (10:50)
[2018-04-19 11:34] VITALS: BP 114/51
--- NOTE | 2018-04-19 13:32 | NUR ---
pt refused any insulin coverage for blood sugar. pt intake at lunch was poor.
[2018-04-19 18:00] VITALS: BP 102/50
--- NOTE | 2018-04-19 18:27 | NUR ---
Problems reprioritized. Patient report given, questions answered & plan of care reviewed with Jennifer OROZCO.
--- NOTE | 2018-04-19 18:30 | NUR ---
Patient in room [facility]. I have received report from Anjelica OROZCO and had the opportunity to ask questions and assume patient care. Visitor at bedside, pt eating dinner.
[2018-04-19] MEDS: insulin glargine (Lantus) pen - multi-dose SQ SCH (21:05)
[2018-04-20] VITALS: BP 118/59
[2018-04-20] MEDS: ipratropium/albuterol 3ml nebule NEB SCH ×6 (03:42→23:37)
--- NOTE | 2018-04-20 06:00 | NUR ---
Patient in room [facility]. I have received report from DOV OROZCO and had the opportunity to ask questions and assume patient care.
[2018-04-20 06:11] LABS: ALANINE AMINOTRANSFERASE 16 U/L (12-78); ALBUMIN 1.2 G/DL (3.4-5.0); ALBUMIN/GLOBULIN RATIO 0.2 (1.1-1.5); ALKALINE PHOSPHATASE 74 IU/L (46-116); ANION GAP 14 (8-16); ASPARTATE AMINO TRANSFERASE 21 U/L (10-37); BILIRUBIN,TOTAL 0.4 MG/DL (0.1-1.0); BLOOD UREA NITROGEN 32 MG/DL (7-18); BUN/CREATININE RATIO 7.4 (5.4-32.0); CALCIUM 8.8 MG/DL (8.5-10.1); CHLORIDE 96 MMOL/L (99-107); CREATININE 4.34 MG/DL (0.60-1.10); GLUCOSE 108 MG/DL (70-104); MAGNESIUM 1.7 MG/DL (1.5-2.4); PHOSPHORUS 2.1 MG/DL (2.3-4.5); POTASSIUM 3.6 MMOL/L (3.5-5.1); SODIUM 136 MMOL/L (135-145); TOTAL CARBON DIOXIDE 26.3 MMOL/L (24-32); TOTAL PROTEIN 7.4 G/DL (6.4-8.2); eGFR 13 ML/MIN
--- NOTE | 2018-04-20 06:35 | NUR ---
Problems reprioritized. Patient report given, questions answered & plan of care reviewed with Jocy OROZCO.
--- NOTE | 2018-04-20 07:07 | NUR ---
Patient in room [facility]. I have received report from DOV OROZCO and had the opportunity to ask questions and assume patient care.
[2018-04-20 07:20] LABS: COMPLEMENT C3, SERUM 88 mg/dL (82-167)
[2018-04-20] MEDS: tamsulosin 0.4mg capsule PO SCH ×3 (08:30→22:03)
[2018-04-20] MEDS: lactobacillus rhamnosus 10,000 MMU CELLS/CAPSULE PO SCH ×2 (08:30→19:29)
[2018-04-20] MEDS: docusate sod 100mg capsule PO SCH ×2 (08:30→19:29)
[2018-04-20] MEDS: iron polysaccharide complex 150mg capsule PO SCH (08:30)
[2018-04-20] MEDS: ascorbic acid 500mg tablet PO SCH (08:30)
[2018-04-20] MEDS: sevelamer carbonate 800mg tablet PO SCH ×3 (08:30→19:33)
[2018-04-20] MEDS: finasteride 5mg tablet PO SCH (08:30)
[2018-04-20] MEDS: amiodarone 200mg tablet PO SCH (08:30)
[2018-04-20] MEDS: zinc oxide ointment 30gm tube TP SCH ×2 (08:32→20:00)
[2018-04-20] MEDS: insulin Lispro (HumaLOG) vial - multi-dose SQ SCH ×3 (08:34→19:29)
[2018-04-20 11:00] VITALS: BP 91/45
[2018-04-20] MEDS: levoFLOXACIN 250mg tablet PO SCH ×2 (11:00→12:58)
--- NOTE | 2018-04-20 13:08 | NUR ---
Reassessment: Pt s/p HD cath placement. No HD 04/19 d/t pt with increasing creatinine and improved urine output per MD notes. Documented PO intake previously decreased with intake averaging 25%, however documented that pt ate 100% at breakfast this AM. LBM 04/19. Will continue to follow and monitor need for ONS. Rec: 1. continue carb controlled/renal diet 2. monitor for ONS needs 3. wt per rx Addendum: 04/20/18 at [address] Amended: Links added.
[2018-04-20 18:00] VITALS: BP 109/50
[2018-04-20] MEDS: guaiFENesin ER 600mg tablet PO SCH (19:29)
[2018-04-20] MEDS: insulin glargine (Lantus) pen - multi-dose SQ SCH (22:07)
[2018-04-20] MEDS: benzocaine/menthol oral lozeng 1 EACH BOX MM PRN (22:33)
[2018-04-21] VITALS: BP 102/46
[2018-04-21] MEDS: benzocaine/menthol oral lozeng 1 EACH BOX MM PRN ×5 (00:20→21:05)
[2018-04-21] MEDS: ipratropium/albuterol 3ml nebule NEB SCH ×6 (03:00→23:53)
--- NOTE | 2018-04-21 06:12 | NUR ---
Problems reprioritized. Patient report given, questions answered & plan of care reviewed with ERNESTO Sandra.
[2018-04-21 07:00] VITALS: BP 110/56
[2018-04-21 07:11] LABS: ALANINE AMINOTRANSFERASE 14 U/L (12-78); ALBUMIN 1.2 G/DL (3.4-5.0); ALBUMIN/GLOBULIN RATIO 0.2 (1.1-1.5); ALKALINE PHOSPHATASE 69 IU/L (46-116); ANION GAP 11 (8-16); ASPARTATE AMINO TRANSFERASE 19 U/L (10-37); BILIRUBIN,TOTAL 0.4 MG/DL (0.1-1.0); BLOOD UREA NITROGEN 33 MG/DL (7-18); BUN/CREATININE RATIO 7.2 (5.4-32.0); CHLORIDE 97 MMOL/L (99-107); CREATININE 4.61 MG/DL (0.60-1.10); GLUCOSE 94 MG/DL (70-104); MAGNESIUM 1.7 MG/DL (1.5-2.4); PHOSPHORUS 2.1 MG/DL (2.3-4.5); POTASSIUM 4.1 MMOL/L (3.5-5.1); SODIUM 135 MMOL/L (135-145); TOTAL CARBON DIOXIDE 26.6 MMOL/L (24-32); TOTAL PROTEIN 7.5 G/DL (6.4-8.2); eGFR 12 ML/MIN
[2018-04-21] MEDS: ascorbic acid 500mg tablet PO SCH (08:19)
[2018-04-21] MEDS: guaiFENesin ER 600mg tablet PO SCH ×2 (08:19→20:12)
[2018-04-21] MEDS: docusate sod 100mg capsule PO SCH ×2 (08:19→20:12)
[2018-04-21] MEDS: tamsulosin 0.4mg capsule PO SCH ×3 (08:19→20:12)
[2018-04-21] MEDS: amiodarone 200mg tablet PO SCH (08:20)
[2018-04-21] MEDS: zinc oxide ointment 30gm tube TP SCH ×2 (08:20→20:16)
[2018-04-21] MEDS: sevelamer carbonate 800mg tablet PO SCH ×3 (08:20→18:02)
[2018-04-21] MEDS: iron polysaccharide complex 150mg capsule PO SCH (08:20)
[2018-04-21] MEDS: lactobacillus rhamnosus 10,000 MMU CELLS/CAPSULE PO SCH ×2 (08:20→20:12)
[2018-04-21] MEDS: finasteride 5mg tablet PO SCH (08:20)
[2018-04-21] MEDS: insulin Lispro (HumaLOG) vial - multi-dose SQ SCH ×2 (08:26→13:22)
[2018-04-21 11:00] VITALS: BP 113/59
--- NOTE | 2018-04-21 18:28 | NUR ---
Problems reprioritized. Patient report given, questions answered & plan of care reviewed with LANA OROZCO.
--- NOTE | 2018-04-21 20:00 | NUR ---
Changed dressing to coccyx and left lateral foot.
[2018-04-21] MEDS: insulin glargine (Lantus) pen - multi-dose SQ SCH (21:24)
[2018-04-21] MEDS: HYDROcodone/acetaminophen 5mg/325mg tablet PO PRN (22:07)
[2018-04-22] MEDS: ipratropium/albuterol 3ml nebule NEB SCH ×6 (03:48→23:50)
[2018-04-22] MEDS: HYDROcodone/acetaminophen 5mg/325mg tablet PO PRN ×2 (04:08→21:16)
[2018-04-22 05:28] LABS: ALANINE AMINOTRANSFERASE 15 U/L (12-78); ALBUMIN 1.3 G/DL (3.4-5.0); ALBUMIN/GLOBULIN RATIO 0.2 (1.1-1.5); ALKALINE PHOSPHATASE 74 IU/L (46-116); ANION GAP 13 (8-16); ASPARTATE AMINO TRANSFERASE 20 U/L (10-37); BILIRUBIN,TOTAL 0.5 MG/DL (0.1-1.0); BLOOD UREA NITROGEN 35 MG/DL (7-18); BUN/CREATININE RATIO 7.2 (5.4-32.0); CALCIUM 9.1 MG/DL (8.5-10.1); CHLORIDE 95 MMOL/L (99-107); CREATININE 4.89 MG/DL (0.60-1.10); GLUCOSE 143 MG/DL (70-104); MAGNESIUM 1.7 MG/DL (1.5-2.4); PHOSPHORUS 2.6 MG/DL (2.3-4.5); POTASSIUM 4.3 MMOL/L (3.5-5.1); SODIUM 133 MMOL/L (135-145); TOTAL CARBON DIOXIDE 24.8 MMOL/L (24-32); TOTAL PROTEIN 7.5 G/DL (6.4-8.2); eGFR 12 ML/MIN
--- NOTE | 2018-04-22 06:18 | NUR ---
Patient in room [facility]. I have received report from Latasha OROZCO and had the opportunity to ask questions and assume patient care.
--- NOTE | 2018-04-22 06:47 | NUR ---
Problems reprioritized. Patient report given, questions answered & plan of care reviewed with ERNESTO Ornelas.
[2018-04-22 07:09] VITALS: BP 108/51
[2018-04-22] MEDS: finasteride 5mg tablet PO SCH (07:21)
[2018-04-22] MEDS: iron polysaccharide complex 150mg capsule PO SCH (07:21)
[2018-04-22] MEDS: tamsulosin 0.4mg capsule PO SCH ×3 (07:21→21:15)
[2018-04-22] MEDS: amiodarone 200mg tablet PO SCH (07:21)
[2018-04-22] MEDS: docusate sod 100mg capsule PO SCH ×2 (07:21→21:14)
[2018-04-22] MEDS: ascorbic acid 500mg tablet PO SCH (07:21)
[2018-04-22] MEDS: lactobacillus rhamnosus 10,000 MMU CELLS/CAPSULE PO SCH ×2 (07:21→21:15)
[2018-04-22] MEDS: guaiFENesin ER 600mg tablet PO SCH ×2 (07:21→21:15)
[2018-04-22] MEDS: sevelamer carbonate 800mg tablet PO SCH ×3 (07:22→17:04)
[2018-04-22] MEDS: insulin Lispro (HumaLOG) vial - multi-dose SQ SCH ×2 (08:58→19:08)
[2018-04-22] MEDS: zinc oxide ointment 30gm tube TP SCH ×2 (08:59→21:21)
[2018-04-22] MEDS: levoFLOXACIN 250mg tablet PO SCH (10:31)
[2018-04-22 11:06] VITALS: BP 92/38
--- NOTE | 2018-04-22 17:57 | NUR ---
Problems reprioritized. Patient report given, questions answered & plan of care reviewed with Susanna OROZCO.
--- NOTE | 2018-04-22 18:10 | NUR ---
Patient in room [facility]. I have received report from Ceci James and had the opportunity to ask questions and assume patient care.
[2018-04-22 19:30] VITALS: BP 98/56
[2018-04-22] MEDS: benzocaine/menthol oral lozeng 1 EACH BOX MM PRN ×2 (21:16→23:32)
[2018-04-22] MEDS: insulin glargine (Lantus) pen - multi-dose SQ SCH (21:30)
[2018-04-23] VITALS: BP 134/53
--- NOTE | 2018-04-23 00:30 | NUR ---
HELD PT'S LANTUS HIS BLOOD SUGAR'S ARE ON THE LOW SIDE. BG TODAY = 86, 110, 88, 74
[2018-04-23] MEDS: ondansetron 4mg rapidly disintigrating tab PO PRN ×2 (02:33→08:24)
[2018-04-23] MEDS: ipratropium/albuterol 3ml nebule NEB SCH ×6 (03:44→23:00)
[2018-04-23 05:34] LABS: ALANINE AMINOTRANSFERASE 15 U/L (12-78); ALBUMIN 1.3 G/DL (3.4-5.0); ALBUMIN/GLOBULIN RATIO 0.2 (1.1-1.5); ALKALINE PHOSPHATASE 77 IU/L (46-116); ANION GAP 15 (8-16); ASPARTATE AMINO TRANSFERASE 28 U/L (10-37); BILIRUBIN,TOTAL 0.4 MG/DL (0.1-1.0); BLOOD UREA NITROGEN 35 MG/DL (7-18); CALCIUM 9.1 MG/DL (8.5-10.1); CHLORIDE 94 MMOL/L (99-107); CREATININE 5.02 MG/DL (0.60-1.10); GLUCOSE 83 MG/DL (70-104); MAGNESIUM 1.8 MG/DL (1.5-2.4); PHOSPHORUS 3.1 MG/DL (2.3-4.5); POTASSIUM 4.2 MMOL/L (3.5-5.1); SODIUM 134 MMOL/L (135-145); TOTAL CARBON DIOXIDE 24.8 MMOL/L (24-32); TOTAL PROTEIN 7.7 G/DL (6.4-8.2); eGFR 11 ML/MIN
--- NOTE | 2018-04-23 06:12 | NUR ---
Patient in room [facility]. I have received report from Susanna OROZCO and had the opportunity to ask questions and assume patient care.
--- NOTE | 2018-04-23 06:53 | NUR ---
Problems reprioritized. Patient report given, questions answered & plan of care reviewed with Ceci James.
[2018-04-23] MEDS: zinc oxide ointment 30gm tube TP SCH ×2 (08:00→20:00)
[2018-04-23] MEDS: lactobacillus rhamnosus 10,000 MMU CELLS/CAPSULE PO SCH (08:25)
[2018-04-23] MEDS: docusate sod 100mg capsule PO SCH (08:25)
[2018-04-23] MEDS: sevelamer carbonate 800mg tablet PO SCH ×3 (08:25→18:00)
[2018-04-23] MEDS: finasteride 5mg tablet PO SCH (08:25)
[2018-04-23] MEDS: iron polysaccharide complex 150mg capsule PO SCH (08:25)
[2018-04-23] MEDS: ascorbic acid 500mg tablet PO SCH (08:25)
[2018-04-23] MEDS: guaiFENesin ER 600mg tablet PO SCH (08:25)
[2018-04-23] MEDS: tamsulosin 0.4mg capsule PO SCH ×2 (08:25→13:00)
[2018-04-23] MEDS: amiodarone 200mg tablet PO SCH (08:27)
[2018-04-23 08:28] VITALS: BP 113/63
[2018-04-23] MEDS ORDERED: heparin 1,000unit/ml 10ml vial 10 ML IV ONE (09:00)
[2018-04-23] MEDS ORDERED: epoetin 20,000 units/ml inj IV ONE (09:00)
[2018-04-23] MEDS ORDERED: normal saline 1000ml 250 ML IV PRN (09:00)
[2018-04-23] MEDS ORDERED: heparin 1,000 units/ml 10ml inj HE ONE ×2 (09:05)
[2018-04-23 09:21] LABS: HEMATOCRIT 28.5 % (42.0-52.0); HEMOGLOBIN 9.4 g/dl (14.0-17.9); MEAN CORPUSCULAR HEMOGLOBIN 29.6 PG (27.0-31.0); MEAN CORPUSCULAR HGB CONC 33.1 % (33.0-36.5); MEAN CORPUSCULAR VOLUME 89.3 FL (78-98); MEAN PLATELET VOLUME 6.6 FL (7.4-10.4); PLATELET COUNT 202 X10'3 (140-440); RED BLOOD COUNT 3.19 X10'6 (4.70-6.10); RED CELL DISTRIBUTION WIDTH 18.5 % (11.5-14.5); WHITE BLOOD COUNT 5.2 X10'3 (4.5-11.0)
--- NOTE | 2018-04-23 10:00 | NUR ---
Will not give insulin coverage, patient did not eat breakfast, states that he doesn't feel well and has no appetite this morning. He took a few bites of cream of wheat only.
[2018-04-23] MEDS: levoFLOXACIN 250mg tablet PO SCH (10:32)
[2018-04-23] MEDS: benzocaine/menthol oral lozeng 1 EACH BOX MM PRN ×2 (10:33→17:41)
[2018-04-23 11:23] VITALS: BP 106/55
[2018-04-23] MEDS: insulin Lispro (HumaLOG) vial - multi-dose SQ SCH (13:33)
--- NOTE | 2018-04-23 19:08 | NUR ---
KELLIE & RADHA HELD PT BEGINNING H.D.
[2018-04-23] MEDS: insulin glargine (Lantus) pen - multi-dose SQ SCH (21:00)
[2018-04-24] VITALS: BP 99/50
[2018-04-24] MEDS: docusate sod 100mg capsule PO SCH ×3 (00:36→21:58)
[2018-04-24] MEDS: lactobacillus rhamnosus 10,000 MMU CELLS/CAPSULE PO SCH ×3 (00:37→21:59)
[2018-04-24] MEDS: guaiFENesin ER 600mg tablet PO SCH ×3 (00:37→21:59)
[2018-04-24] MEDS: tamsulosin 0.4mg capsule PO SCH ×4 (00:37→21:59)
[2018-04-24] MEDS: HYDROcodone/acetaminophen 5mg/325mg tablet PO PRN (00:38)
[2018-04-24 01:22] VITALS: BP 105/43
[2018-04-24] MEDS: ipratropium/albuterol 3ml nebule NEB SCH ×6 (04:08→23:00)
[2018-04-24 06:42] LABS: ALANINE AMINOTRANSFERASE 14 U/L (12-78); ALBUMIN 1.2 G/DL (3.4-5.0); ALBUMIN/GLOBULIN RATIO 0.2 (1.1-1.5); ALKALINE PHOSPHATASE 79 IU/L (46-116); ANION GAP 11 (8-16); ASPARTATE AMINO TRANSFERASE 24 U/L (10-37); BILIRUBIN,TOTAL 0.4 MG/DL (0.1-1.0); BLOOD UREA NITROGEN 11 MG/DL (7-18); BUN/CREATININE RATIO 4.8 (5.4-32.0); CALCIUM 8.9 MG/DL (8.5-10.1); CHLORIDE 99 MMOL/L (99-107); CREATININE 2.28 MG/DL (0.60-1.10); GLUCOSE 75 MG/DL (70-104); MAGNESIUM 1.9 MG/DL (1.5-2.4); PHOSPHORUS 1.9 MG/DL (2.3-4.5); POTASSIUM 4.2 MMOL/L (3.5-5.1); SODIUM 137 MMOL/L (135-145); TOTAL CARBON DIOXIDE 26.7 MMOL/L (24-32); TOTAL PROTEIN 7.4 G/DL (6.4-8.2); eGFR 28 ML/MIN
--- NOTE | 2018-04-24 06:42 | NUR ---
Problems reprioritized. Patient report given, questions answered & plan of care reviewed with EMILIA. Addendum: 04/24/18 at 0643 by Leonel Gary RN Amended: Links added.
[2018-04-24] MEDS: benzocaine/menthol oral lozeng 1 EACH BOX MM PRN ×2 (06:45→16:09)
[2018-04-24 07:15] VITALS: BP 105/46
[2018-04-24] MEDS: ascorbic acid 500mg tablet PO SCH (09:06)
[2018-04-24] MEDS: amiodarone 200mg tablet PO SCH (09:06)
[2018-04-24] MEDS: iron polysaccharide complex 150mg capsule PO SCH (09:07)
[2018-04-24] MEDS: finasteride 5mg tablet PO SCH (09:07)
[2018-04-24] MEDS: sevelamer carbonate 800mg tablet PO SCH ×3 (09:07→17:27)
[2018-04-24] MEDS: zinc oxide ointment 30gm tube TP SCH ×2 (09:18→20:00)
[2018-04-24 11:12] VITALS: BP 106/37
[2018-04-24] MEDS: levoFLOXACIN 250mg tablet PO SCH (12:42)
--- NOTE | 2018-04-24 18:08 | NUR ---
Problems reprioritized. Patient report given, questions answered & plan of care reviewed with Maksim OROZCO.
[2018-04-24 20:00] VITALS: BP 108/44
[2018-04-24] MEDS: insulin glargine (Lantus) pen - multi-dose SQ SCH (22:04)
[2018-04-25] VITALS: BP 98/44
[2018-04-25] MEDS: ipratropium/albuterol 3ml nebule NEB SCH ×5 (03:00→23:00)
--- NOTE | 2018-04-25 06:54 | NUR ---
Problems reprioritized. Patient report given, questions answered & plan of care reviewed with LAURA. Addendum: 04/25/18 at 0655 by Leonel Gary RN Amended: Links added.
[2018-04-25 07:45] VITALS: BP 102/43
[2018-04-25] MEDS: guaiFENesin ER 600mg tablet PO SCH ×2 (08:04→20:45)
[2018-04-25] MEDS: iron polysaccharide complex 150mg capsule PO SCH (08:04)
[2018-04-25] MEDS: sevelamer carbonate 800mg tablet PO SCH ×3 (08:04→20:45)
[2018-04-25] MEDS: docusate sod 100mg capsule PO SCH ×2 (08:04→20:45)
[2018-04-25] MEDS: lactobacillus rhamnosus 10,000 MMU CELLS/CAPSULE PO SCH ×2 (08:04→20:45)
[2018-04-25] MEDS: zinc oxide ointment 30gm tube TP SCH ×2 (08:04→20:46)
[2018-04-25] MEDS: finasteride 5mg tablet PO SCH (08:04)
[2018-04-25] MEDS: tamsulosin 0.4mg capsule PO SCH ×3 (08:04→20:45)
[2018-04-25] MEDS: amiodarone 200mg tablet PO SCH (08:04)
[2018-04-25] MEDS: ascorbic acid 500mg tablet PO SCH (08:04)
[2018-04-25] MEDS: benzocaine/menthol oral lozeng 1 EACH BOX MM PRN (08:06)
[2018-04-25] MEDS ORDERED: normal saline 1000ml 250 ML IV PRN (08:30)
[2018-04-25] MEDS ORDERED: epoetin 20,000 units/ml inj IV ONE (08:30)
[2018-04-25] MEDS ORDERED: heparin 1,000unit/ml 10ml vial 10 ML IV ONE (08:30)
[2018-04-25] MEDS ORDERED: heparin 1,000 units/ml 10ml inj HE ONE ×2 (08:35)
[2018-04-25 09:10] LABS: HEMATOCRIT 26.3 % (42.0-52.0); HEMOGLOBIN 8.6 g/dl (14.0-17.9); MEAN CORPUSCULAR HEMOGLOBIN 29.3 PG (27.0-31.0); MEAN CORPUSCULAR HGB CONC 32.7 % (33.0-36.5); MEAN CORPUSCULAR VOLUME 89.7 FL (78-98); MEAN PLATELET VOLUME 6.3 FL (7.4-10.4); PLATELET COUNT 232 X10'3 (140-440); RED BLOOD COUNT 2.94 X10'6 (4.70-6.10); RED CELL DISTRIBUTION WIDTH 17.4 % (11.5-14.5); WHITE BLOOD COUNT 5.1 X10'3 (4.5-11.0)
[2018-04-25 12:28] VITALS: BP 110/47
--- NOTE | 2018-04-25 15:23 | NUR ---
Nutrition consult re: Pt eating 25-50%, needs supplement. Pt seen at bedside endorses a good appetite and states that he doesn't want to eat too much in order to prevent himself from throwing up. Pt states he has thrown up three times since being here, encouraged pt to inform RN when feeling nauseas. Pt agreeable to Nepro TID in order to optimize PO intake, MD wasserman, d/w dietary. Pt states he doesn't have his teeth making it difficult to chew, pt agreeable to soft to chew foods, d/w dietary. Reinforced the importance of nutrition and protein while in the hospital and receiving HD. Pt with no further questions at this time. Will continue to follow. Rec: 1. continue carb controlled/renal diet 2. Nepro TID 3. Soft to chew food 4. wt per rx Addendum: 04/25/18 at [address] Amended: Links added.
--- NOTE | 2018-04-25 17:00 | NUR ---
[facility] is requiring a Hep B panel before they will see patient in outpatient setting. Panel scheduled for AM draw.
--- NOTE | 2018-04-25 18:00 | NUR ---
Held patients Renvela until he eats dinner after he is done with HD.
--- NOTE | 2018-04-25 19:05 | NUR ---
Problems reprioritized. Patient report given, questions answered & plan of care reviewed with Tracey RN.
[2018-04-25 19:30] VITALS: BP 120/57
--- NOTE | 2018-04-25 20:30 | NUR ---
Mik cath patent; site clear; dialysis nurse reports pt procedure is completed & one liter was removed
[2018-04-25] MEDS: insulin glargine (Lantus) pen - multi-dose SQ SCH (23:04)
[2018-04-25] MEDS: acetaminophen 325mg tablet PO PRN (23:15)
[2018-04-25 23:30] VITALS: BP 105/40
[2018-04-26] MEDS: ipratropium/albuterol 3ml nebule NEB SCH ×6 (01:50→23:00)
--- NOTE | 2018-04-26 05:46 | NUR ---
checked q1hr; slept at intervals with resp even and unlabored; pt earlier refusing resp tx, but agreed earlier this morning when he woke up c/o of SOB & needing to cough up sputum; after resp tx, pt able to return back to sleep; pt assisted with repositioning average of q2-3hrs
--- NOTE | 2018-04-26 06:30 | NUR ---
Patient in room [facility]. I have received report from Pat RN and had the opportunity to ask questions and assume patient care.
--- NOTE | 2018-04-26 06:40 | NUR ---
report given to ERNESTO Garsia
[2018-04-26] MEDS: benzocaine/menthol oral lozeng 1 EACH BOX MM PRN ×3 (06:46→23:36)
[2018-04-26 07:56] VITALS: BP 105/43
[2018-04-26] MEDS: docusate sod 100mg capsule PO SCH ×2 (08:34→20:00)
[2018-04-26] MEDS: ascorbic acid 500mg tablet PO SCH (08:34)
[2018-04-26] MEDS: sevelamer carbonate 800mg tablet PO SCH ×3 (08:34→17:25)
[2018-04-26] MEDS: finasteride 5mg tablet PO SCH (08:34)
[2018-04-26] MEDS: zinc oxide ointment 30gm tube TP SCH ×2 (08:35→20:42)
[2018-04-26] MEDS: guaiFENesin ER 600mg tablet PO SCH ×2 (08:35→20:41)
[2018-04-26] MEDS: lactobacillus rhamnosus 10,000 MMU CELLS/CAPSULE PO SCH ×2 (08:35→20:41)
[2018-04-26] MEDS: amiodarone 200mg tablet PO SCH (08:35)
[2018-04-26] MEDS: tamsulosin 0.4mg capsule PO SCH ×3 (08:35→20:42)
[2018-04-26] MEDS: iron polysaccharide complex 150mg capsule PO SCH (08:35)
[2018-04-26 09:29] LABS: ALBUMIN 1.3 G/DL (3.4-5.0); ANION GAP 13 (8-16); BLOOD UREA NITROGEN 8 MG/DL (7-18); BUN/CREATININE RATIO 3.5 (5.4-32.0); CALCIUM 8.4 MG/DL (8.5-10.1); CHLORIDE 97 MMOL/L (99-107); CREATININE 2.31 MG/DL (0.60-1.10); GLUCOSE 87 MG/DL (70-104); POTASSIUM 3.8 MMOL/L (3.5-5.1); SODIUM 136 MMOL/L (135-145); TOTAL CARBON DIOXIDE 26.4 MMOL/L (24-32); eGFR 28 ML/MIN
[2018-04-26 12:16] VITALS: BP 110/43
--- NOTE | 2018-04-26 18:15 | NUR ---
Patient in room [facility]. I have received report from Sun OROZCO and had the opportunity to ask questions and assume patient care.
--- NOTE | 2018-04-26 18:41 | NUR ---
Problems reprioritized. Patient report given, questions answered & plan of care reviewed with Janina OROZCO.
[2018-04-26 19:00] VITALS: BP 101/48
[2018-04-26] MEDS: heparin, porcine 5000 units/ml vial SQ SCH (20:42)
[2018-04-26] MEDS: insulin glargine (Lantus) pen - multi-dose SQ SCH (20:43)
[2018-04-27] VITALS: BP 118/48
[2018-04-27] MEDS: ipratropium/albuterol 3ml nebule NEB SCH ×6 (04:03→23:00)
[2018-04-27] MEDS: benzocaine/menthol oral lozeng 1 EACH BOX MM PRN ×2 (05:14→21:18)
--- NOTE | 2018-04-27 06:30 | NUR ---
Problems reprioritized. Patient report given, questions answered & plan of care reviewed with Sun OROZCO.
[2018-04-27 06:47] LABS: BASOPHILS % (AUTO) 0.7 % (0-1); EOSINOPHILS # (AUTO) 0.2 X10'3 (0-0.9); EOSINOPHILS % (AUTO) 5.5 % (0-6); HEMATOCRIT 26.3 % (42.0-52.0); HEMOGLOBIN 8.7 g/dl (14.0-17.9); LYMPHOCYTES # (AUTO) 0.7 X10'3 (1.1-4.8); MEAN CORPUSCULAR HEMOGLOBIN 29.6 PG (27.0-31.0); MEAN CORPUSCULAR VOLUME 89.9 FL (78-98); MEAN PLATELET VOLUME 6.8 FL (7.4-10.4); MONOCYTES # (AUTO) 0.6 X10'3 (0-0.9); MONOCYTES % (AUTO) 13.4 % (2-12); NEUTROPHILS # (AUTO) 2.9 X10'3 (1.8-7.7); NEUTROPHILS % (AUTO) 65.4 % (42-75); PLATELET COUNT 260 X10'3 (140-440); RED BLOOD COUNT 2.93 X10'6 (4.70-6.10); RED CELL DISTRIBUTION WIDTH 17.9 % (11.5-14.5); WHITE BLOOD COUNT 4.4 X10'3 (4.5-11.0)
--- NOTE | 2018-04-27 07:00 | NUR ---
Patient in room [facility]. I have received report from Janina OROZCO and had the opportunity to ask questions and assume patient care.
[2018-04-27 07:03] LABS: ALBUMIN 1.2 G/DL (3.4-5.0); ANION GAP 10 (8-16); BLOOD UREA NITROGEN 16 MG/DL (7-18); CALCIUM 8.7 MG/DL (8.5-10.1); CHLORIDE 99 MMOL/L (99-107); CREATININE 3.19 MG/DL (0.60-1.10); GLUCOSE 120 MG/DL (70-104); POTASSIUM 3.8 MMOL/L (3.5-5.1); SODIUM 136 MMOL/L (135-145); eGFR 19 ML/MIN
[2018-04-27 07:47] VITALS: BP 115/55
[2018-04-27] MEDS ORDERED: heparin 1,000unit/ml 10ml vial 10 ML IV ONE (08:00)
[2018-04-27] MEDS ORDERED: normal saline 1000ml 250 ML IV PRN (08:00)
[2018-04-27] MEDS ORDERED: epoetin 20,000 units/ml inj IV ONE (08:00)
[2018-04-27] MEDS ORDERED: heparin 1,000 units/ml 10ml inj HE ONE ×2 (08:00)
[2018-04-27] MEDS: ascorbic acid 500mg tablet PO SCH (08:23)
[2018-04-27] MEDS: guaiFENesin ER 600mg tablet PO SCH ×2 (08:23→21:18)
[2018-04-27] MEDS: tamsulosin 0.4mg capsule PO SCH ×3 (08:23→21:18)
[2018-04-27] MEDS: zinc oxide ointment 30gm tube TP SCH ×2 (08:23→21:19)
[2018-04-27] MEDS: sevelamer carbonate 800mg tablet PO SCH ×3 (08:23→17:03)
[2018-04-27] MEDS: lactobacillus rhamnosus 10,000 MMU CELLS/CAPSULE PO SCH ×2 (08:23→21:18)
[2018-04-27] MEDS: iron polysaccharide complex 150mg capsule PO SCH (08:23)
[2018-04-27] MEDS: docusate sod 100mg capsule PO SCH ×2 (08:23→21:18)
[2018-04-27] MEDS: heparin, porcine 5000 units/ml vial SQ SCH ×2 (08:23→21:19)
[2018-04-27] MEDS: finasteride 5mg tablet PO SCH (08:23)
[2018-04-27] MEDS: amiodarone 200mg tablet PO SCH (08:23)
[2018-04-27 08:26] LABS: HBSAG SCREEN Negative (Negative); HEP B CORE AB, IGM Negative (Negative); HEP B CORE AB, TOT Negative (Negative)
[2018-04-27 12:14] VITALS: BP 116/50
--- NOTE | 2018-04-27 18:41 | NUR ---
Problems reprioritized. Patient report given, questions answered & plan of care reviewed with Alicja OROZCO.
[2018-04-27 19:30] VITALS: BP 97/49
[2018-04-27] MEDS: insulin glargine (Lantus) pen - multi-dose SQ SCH (21:00)
[2018-04-28 00:30] VITALS: BP 110/50
[2018-04-28] MEDS: ipratropium/albuterol 3ml nebule NEB SCH ×5 (03:00→18:50)
[2018-04-28] MEDS: benzocaine/menthol oral lozeng 1 EACH BOX MM PRN ×3 (05:06→20:29)
--- NOTE | 2018-04-28 06:29 | NUR ---
Problems reprioritized. Patient report given, questions answered & plan of care reviewed with Ceci OROZCO.
[2018-04-28 07:00] LABS: BASOPHILS % (AUTO) 0.7 % (0-1); EOSINOPHILS # (AUTO) 0.2 X10'3 (0-0.9); EOSINOPHILS % (AUTO) 4.3 % (0-6); HEMATOCRIT 28.4 % (42.0-52.0); HEMOGLOBIN 9.1 g/dl (14.0-17.9); LYMPHOCYTES # (AUTO) 0.9 X10'3 (1.1-4.8); LYMPHOCYTES % (AUTO) 18.4 % (21-51); MEAN CORPUSCULAR HEMOGLOBIN 28.7 PG (27.0-31.0); MEAN CORPUSCULAR HGB CONC 31.9 % (33.0-36.5); MEAN PLATELET VOLUME 7.1 FL (7.4-10.4); MONOCYTES # (AUTO) 0.7 X10'3 (0-0.9); MONOCYTES % (AUTO) 14.8 % (2-12); NEUTROPHILS # (AUTO) 2.8 X10'3 (1.8-7.7); NEUTROPHILS % (AUTO) 61.8 % (42-75); PLATELET COUNT 266 X10'3 (140-440); RED BLOOD COUNT 3.16 X10'6 (4.70-6.10); RED CELL DISTRIBUTION WIDTH 17.3 % (11.5-14.5); WHITE BLOOD COUNT 4.6 X10'3 (4.5-11.0)
[2018-04-28 07:02] LABS: ALBUMIN 1.3 G/DL (3.4-5.0); ANION GAP 9 (8-16); BLOOD UREA NITROGEN 9 MG/DL (7-18); BUN/CREATININE RATIO 4.2 (5.4-32.0); CALCIUM 8.4 MG/DL (8.5-10.1); CHLORIDE 98 MMOL/L (99-107); CREATININE 2.16 MG/DL (0.60-1.10); GLUCOSE 102 MG/DL (70-104); POTASSIUM 4.1 MMOL/L (3.5-5.1); SODIUM 136 MMOL/L (135-145); TOTAL CARBON DIOXIDE 28.8 MMOL/L (24-32); eGFR 30 ML/MIN
--- NOTE | 2018-04-28 07:06 | NUR ---
Patient in room MIL[facility] 359B. I have received report from Kayla OROZCO and had the opportunity to ask questions and assume patient care.
[2018-04-28 07:15] VITALS: BP 107/52
[2018-04-28] MEDS: zinc oxide ointment 30gm tube TP SCH ×2 (08:00→20:28)
[2018-04-28] MEDS: docusate sod 100mg capsule PO SCH ×2 (08:01→20:28)
[2018-04-28] MEDS: lactobacillus rhamnosus 10,000 MMU CELLS/CAPSULE PO SCH ×2 (08:01→20:28)
[2018-04-28] MEDS: ascorbic acid 500mg tablet PO SCH (08:02)
[2018-04-28] MEDS: finasteride 5mg tablet PO SCH (08:02)
[2018-04-28] MEDS: tamsulosin 0.4mg capsule PO SCH ×3 (08:02→20:28)
[2018-04-28] MEDS: heparin, porcine 5000 units/ml vial SQ SCH ×2 (08:02→20:29)
[2018-04-28] MEDS: sevelamer carbonate 800mg tablet PO SCH ×3 (08:02→17:53)
[2018-04-28] MEDS: iron polysaccharide complex 150mg capsule PO SCH (08:02)
[2018-04-28] MEDS: amiodarone 200mg tablet PO SCH (08:02)
[2018-04-28] MEDS: guaiFENesin ER 600mg tablet PO SCH ×2 (08:02→20:28)
[2018-04-28 11:35] VITALS: BP 101/40
--- NOTE | 2018-04-28 16:12 | NUR ---
Reassessment: Pt continues with PO intake 25-50%. Pt seen at bedside states he is still worried about eating too much d/t throwing up afterwards, however pt says that hasn't happened in awhile and he thinks it's improving. Encouraged patient to at least eat the protein at meals and drink the Nepro. Pt with food requests for breakfast tomorrow, d/w dietary. [facility] 04/21, pt with routine Colace, will send prune juice w/ breakfast as poor PO intake and constipation are correlated, d/w dietary. Will continue to follow. Rec: 1. continue carb controlled/renal diet 2. Nepro TID 3. Soft to chew food 4. Encourage PO intake 5. wt per rx Addendum: 04/28/18 at [address] Amended: Links added.
--- NOTE | 2018-04-28 17:26 | NUR ---
Patients BS have been increasing today, will start hyperglycemic protocol again per existing orders. Patients BG 109, 208 and 177 today. Patient will start at level 2 at dinner.
--- NOTE | 2018-04-28 18:25 | NUR ---
Patient in room [facility]. I have received report from Ceci OROZCO and had the opportunity to ask questions and assume patient care.
--- NOTE | 2018-04-28 18:28 | NUR ---
Problems reprioritized. Patient report given, questions answered & plan of care reviewed with Kayla OROZCO.
[2018-04-28] MEDS: insulin Lispro (HumaLOG) vial - multi-dose SQ SCH (18:55)
[2018-04-28 19:00] VITALS: BP 107/39
[2018-04-28] MEDS ORDERED: cefTAZidime inj. 1 GM in normal saline 100ml IV soln 100 ML IV SCH (20:00)
[2018-04-28] MEDS: insulin glargine (Lantus) pen - multi-dose SQ SCH (20:39)
[2018-04-28] MEDS ORDERED: ipratropium/albuterol 3ml nebule NEB PRN (20:50)
[2018-04-28 23:54] VITALS: BP 100/40
[2018-04-29] MEDS: benzocaine/menthol oral lozeng 1 EACH BOX MM PRN ×3 (02:11→19:26)
--- NOTE | 2018-04-29 06:23 | NUR ---
Problems reprioritized. Patient report given, questions answered & plan of care reviewed with Ceci OROZCO.
[2018-04-29] MEDS: ipratropium/albuterol 3ml nebule NEB SCH ×4 (07:39→19:49)
[2018-04-29] MEDS: heparin, porcine 5000 units/ml vial SQ SCH ×2 (08:11→19:18)
[2018-04-29] MEDS: magnesium hydroxide 30ml (MOM) UD suspension PO PRN (08:11)
[2018-04-29] MEDS: docusate sod 100mg capsule PO SCH ×2 (08:12→19:17)
[2018-04-29] MEDS: zinc oxide ointment 30gm tube TP SCH ×2 (08:12→19:18)
[2018-04-29] MEDS: tamsulosin 0.4mg capsule PO SCH ×3 (08:12→20:57)
[2018-04-29] MEDS: lactobacillus rhamnosus 10,000 MMU CELLS/CAPSULE PO SCH ×2 (08:12→19:17)
[2018-04-29] MEDS: amiodarone 200mg tablet PO SCH (08:12)
[2018-04-29] MEDS: sevelamer carbonate 800mg tablet PO SCH ×3 (08:12→17:37)
[2018-04-29] MEDS: finasteride 5mg tablet PO SCH (08:12)
[2018-04-29] MEDS: guaiFENesin ER 600mg tablet PO SCH ×2 (08:12→19:19)
[2018-04-29] MEDS: ascorbic acid 500mg tablet PO SCH (08:12)
[2018-04-29] MEDS: iron polysaccharide complex 150mg capsule PO SCH (08:12)
[2018-04-29 08:16] LABS: BASOPHILS % (AUTO) 0.8 % (0-1); EOSINOPHILS # (AUTO) 0.3 X10'3 (0-0.9); EOSINOPHILS % (AUTO) 5.7 % (0-6); HEMATOCRIT 27.8 % (42.0-52.0); LYMPHOCYTES # (AUTO) 0.8 X10'3 (1.1-4.8); LYMPHOCYTES % (AUTO) 16.3 % (21-51); MEAN CORPUSCULAR HEMOGLOBIN 28.9 PG (27.0-31.0); MEAN CORPUSCULAR HGB CONC 32.3 % (33.0-36.5); MEAN CORPUSCULAR VOLUME 89.4 FL (78-98); MEAN PLATELET VOLUME 7.1 FL (7.4-10.4); MONOCYTES # (AUTO) 0.7 X10'3 (0-0.9); MONOCYTES % (AUTO) 14.3 % (2-12); NEUTROPHILS # (AUTO) 3.2 X10'3 (1.8-7.7); NEUTROPHILS % (AUTO) 62.9 % (42-75); PLATELET COUNT 266 X10'3 (140-440); RED BLOOD COUNT 3.11 X10'6 (4.70-6.10); RED CELL DISTRIBUTION WIDTH 18.1 % (11.5-14.5)
[2018-04-29] MEDS: insulin Lispro (HumaLOG) vial - multi-dose SQ SCH ×3 (08:19→19:02)
[2018-04-29 08:28] LABS: ALBUMIN 1.2 G/DL (3.4-5.0); ANION GAP 11 (8-16); BLOOD UREA NITROGEN 16 MG/DL (7-18); BUN/CREATININE RATIO 5.4 (5.4-32.0); CHLORIDE 97 MMOL/L (99-107); CREATININE 2.95 MG/DL (0.60-1.10); GLUCOSE 78 MG/DL (70-104); POTASSIUM 3.6 MMOL/L (3.5-5.1); SODIUM 136 MMOL/L (135-145); TOTAL CARBON DIOXIDE 27.9 MMOL/L (24-32); eGFR 21 ML/MIN
[2018-04-29 08:36] VITALS: BP 120/49
[2018-04-29 11:26] VITALS: BP 104/47
--- NOTE | 2018-04-29 18:05 | NUR ---
Problems reprioritized. Patient report given, questions answered & plan of care reviewed with Susanna OROZCO.
--- NOTE | 2018-04-29 18:30 | NUR ---
Patient in room [facility]. I have received report from Ceci OROZCO and had the opportunity to ask questions and assume patient care.
[2018-04-29 19:30] VITALS: BP 124/60
--- NOTE | 2018-04-29 20:30 | NUR ---
Patient says his pain is 8/10 to his back, but does not want to take anything for it. Addendum: 04/30/18 at 0120 by Susanna Martinez RN Amended: Links added.
[2018-04-29] MEDS: insulin glargine (Lantus) pen - multi-dose SQ SCH (20:55)
[2018-04-30] VITALS: BP 117/52
[2018-04-30] MEDS: benzocaine/menthol oral lozeng 1 EACH BOX MM PRN ×3 (00:54→23:13)
--- NOTE | 2018-04-30 06:25 | NUR ---
Patient in room [facility]. I have received report from ERNESTO Mullins and had the opportunity to ask questions and assume patient care.
--- NOTE | 2018-04-30 06:38 | NUR ---
Problems reprioritized. Patient report given, questions answered & plan of care reviewed with Daniela OROZCO.
[2018-04-30 06:54] LABS: ALBUMIN 1.1 G/DL (3.4-5.0); ANION GAP 14 (8-16); BLOOD UREA NITROGEN 20 MG/DL (7-18); BUN/CREATININE RATIO 6.1 (5.4-32.0); CALCIUM 9.3 MG/DL (8.5-10.1); CHLORIDE 98 MMOL/L (99-107); CREATININE 3.27 MG/DL (0.60-1.10); GLUCOSE 90 MG/DL (70-104); POTASSIUM 3.9 MMOL/L (3.5-5.1); SODIUM 137 MMOL/L (135-145); TOTAL CARBON DIOXIDE 25.2 MMOL/L (24-32); eGFR 18 ML/MIN
--- NOTE | 2018-04-30 07:00 | NUR ---
Patient was 73 this am; he was a level 1. He will now have to re-meet protocol. Will re-check at 1200.
[2018-04-30 07:03] LABS: BASOPHILS % (AUTO) 0.9 % (0-1); EOSINOPHILS # (AUTO) 0.3 X10'3 (0-0.9); EOSINOPHILS % (AUTO) 5.1 % (0-6); HEMATOCRIT 27.1 % (42.0-52.0); HEMOGLOBIN 9.1 g/dl (14.0-17.9); LYMPHOCYTES # (AUTO) 0.7 X10'3 (1.1-4.8); LYMPHOCYTES % (AUTO) 12.6 % (21-51); MEAN CORPUSCULAR HEMOGLOBIN 30.3 PG (27.0-31.0); MEAN CORPUSCULAR HGB CONC 33.4 % (33.0-36.5); MEAN CORPUSCULAR VOLUME 90.8 FL (78-98); MEAN PLATELET VOLUME 6.5 FL (7.4-10.4); MONOCYTES # (AUTO) 0.7 X10'3 (0-0.9); MONOCYTES % (AUTO) 12.5 % (2-12); NEUTROPHILS # (AUTO) 3.7 X10'3 (1.8-7.7); NEUTROPHILS % (AUTO) 68.9 % (42-75); PLATELET COUNT 257 X10'3 (140-440); RED BLOOD COUNT 2.99 X10'6 (4.70-6.10); RED CELL DISTRIBUTION WIDTH 18.6 % (11.5-14.5); WHITE BLOOD COUNT 5.4 X10'3 (4.5-11.0)
[2018-04-30 07:30] VITALS: BP 108/43
[2018-04-30] MEDS: ipratropium/albuterol 3ml nebule NEB SCH ×4 (07:42→19:25)
[2018-04-30] MEDS: zinc oxide ointment 30gm tube TP SCH ×2 (08:00→21:02)
[2018-04-30] MEDS: docusate sod 100mg capsule PO SCH ×2 (08:22→20:58)
[2018-04-30] MEDS: pantoprazole 40mg Tablet.DR PO SCH (08:22)
[2018-04-30] MEDS: tamsulosin 0.4mg capsule PO SCH ×3 (08:23→20:57)
[2018-04-30] MEDS: lactobacillus rhamnosus 10,000 MMU CELLS/CAPSULE PO SCH ×2 (08:23→20:58)
[2018-04-30] MEDS: iron polysaccharide complex 150mg capsule PO SCH (08:23)
[2018-04-30] MEDS: guaiFENesin ER 600mg tablet PO SCH ×2 (08:23→20:58)
[2018-04-30] MEDS: amiodarone 200mg tablet PO SCH (08:23)
[2018-04-30] MEDS: sevelamer carbonate 800mg tablet PO SCH ×3 (08:24→18:04)
[2018-04-30] MEDS: ascorbic acid 500mg tablet PO SCH (08:24)
[2018-04-30] MEDS: finasteride 5mg tablet PO SCH (08:24)
[2018-04-30] MEDS: heparin, porcine 5000 units/ml vial SQ SCH ×2 (08:25→21:00)
[2018-04-30] MEDS ORDERED: heparin 1,000unit/ml 10ml vial 10 ML IV ONE (08:57)
[2018-04-30] MEDS ORDERED: normal saline 1000ml 250 ML IV PRN (08:57)
[2018-04-30] MEDS ORDERED: epoetin 20,000 units/ml inj IV ONE (09:00)
[2018-04-30] MEDS ORDERED: heparin 1,000 units/ml 10ml inj HE ONE ×2 (09:05)
[2018-04-30 11:00] VITALS: BP 104/43
--- NOTE | 2018-04-30 13:00 | NUR ---
Did not give him his renvela because he didn't eat lunch because he was receiving dialysis. I also didn't cover his sugar because he was 123 and needs to re-meet protocol because he was 73 this am. Will re-check at 1700.
--- NOTE | 2018-04-30 18:17 | NUR ---
Problems reprioritized. Patient report given, questions answered & plan of care reviewed with ERNESTO Mullins.
--- NOTE | 2018-04-30 18:20 | NUR ---
Patient in room [facility]. I have received report from Daniela OROZCO and had the opportunity to ask questions and assume patient care.
[2018-04-30 19:30] VITALS: BP 109/48
[2018-04-30] MEDS: insulin glargine (Lantus) pen - multi-dose SQ SCH (21:00)
[2018-04-30] MEDS: acetaminophen 325mg tablet PO PRN (23:12)
[2018-05-01] VITALS: BP 90/45
[2018-05-01] MEDS: benzocaine/menthol oral lozeng 1 EACH BOX MM PRN (03:58)
[2018-05-01 06:04] LABS: ALBUMIN 1.2 G/DL (3.4-5.0); ANION GAP 11 (8-16); BLOOD UREA NITROGEN 11 MG/DL (7-18); BUN/CREATININE RATIO 5.1 (5.4-32.0); CALCIUM 8.8 MG/DL (8.5-10.1); CHLORIDE 96 MMOL/L (99-107); CREATININE 2.16 MG/DL (0.60-1.10); GLUCOSE 115 MG/DL (70-104); POTASSIUM 4.4 MMOL/L (3.5-5.1); SODIUM 135 MMOL/L (135-145); TOTAL CARBON DIOXIDE 28.5 MMOL/L (24-32); eGFR 30 ML/MIN
[2018-05-01] MEDS: ipratropium/albuterol 3ml nebule NEB SCH ×2 (06:19→10:18)
--- NOTE | 2018-05-01 06:31 | NUR ---
Patient in room [facility]. I have received report from ERNESTO Mullins and had the opportunity to ask questions and assume patient care.
[2018-05-01 07:21] VITALS: BP 123/53
[2018-05-01] MEDS: docusate sod 100mg capsule PO SCH (08:06)
[2018-05-01] MEDS: pantoprazole 40mg Tablet.DR PO SCH (08:06)
[2018-05-01] MEDS: tamsulosin 0.4mg capsule PO SCH (08:07)
[2018-05-01] MEDS: guaiFENesin ER 600mg tablet PO SCH (08:07)
[2018-05-01] MEDS: amiodarone 200mg tablet PO SCH (08:07)
[2018-05-01] MEDS: iron polysaccharide complex 150mg capsule PO SCH (08:07)
[2018-05-01] MEDS: lactobacillus rhamnosus 10,000 MMU CELLS/CAPSULE PO SCH (08:07)
[2018-05-01] MEDS: finasteride 5mg tablet PO SCH (08:08)
[2018-05-01] MEDS: sevelamer carbonate 800mg tablet PO SCH (08:08)
[2018-05-01] MEDS: ascorbic acid 500mg tablet PO SCH (08:09)
[2018-05-01] MEDS: heparin, porcine 5000 units/ml vial SQ SCH (08:09)
[2018-05-01] MEDS: zinc oxide ointment 30gm tube TP SCH (08:11)
[2018-05-01] MEDS ORDERED: INSU100V11 SQ (10:04)
[2018-05-01] MEDS ORDERED: SEVE800T8 PO (10:04)
[2018-05-01 11:30] VITALS: BP 107/38
--- NOTE | 2018-05-01 12:10 | NUR ---
Patient discharged. No PIV to remove. Education given to patient and caregiver. Education was given on how to care for a Carreno at home (patient had one prior also), new diabetes medications, and when to follow up with caregivers. His caregiver was very perceptive and has been taking care of Mr. Vidales for over a year. He received a leg bag and I switched his hospital bag with a clean one for home while I explained to Juan (caregiver) how to keep it clean. He will also be following up with a urologist (Ozzie has seen him prior) to keep track of the Carreno and re-evaluate need. Patient was also instructed not to take his metformin and it was crossed off of his med-list after confirming with Dr. Arnold. Gave extensive education on his new Humalog injections and was given a level 2 sliding scale for home. Juan has been giving him Levemir injections at home so he knows how to use the pens and how to give injections. Patient will no longer be taking Levemir because he has had normal sugar levels for the last couple of days. Encouraged to follow up with his primary to follow his sugars/insulin regimen. Juan will also be following up with his Amiodarone/Coumadin confusion. Dr. Arnold wanted him to take the Amiodarone but confirm regarding the Coumadin since he hasn't been taking it this admission because his INR was extremely high when admitted. Patient will also be getting dialysis through [facility] and will go for an appointment today. Patient was wheeled down by caregiver, Juan.
== END 2018-05-01 12:11 | disposition home health service (06) | DRG 673 ==
LOC: ER 14:49 → ED HOLD 17:32 → SUR 3N 22:15
PROVIDERS: ADMIT Hospitalist; ATTEND Internal Medicine
PROC: 02HV33Z Insertion of Infusion Device into Superior Vena Cava, Percutaneous Approach (ICD-10-PCS; 2018-04-13)
PROC: B548ZZA Ultrasonography of Superior Vena Cava, Guidance (ICD-10-PCS; 2018-04-13)
PROC: 5A1D70Z Performance of Urinary Filtration, Intermittent, Less than 6 Hours Per Day (ICD-10-PCS; 2018-04-13)
PROC: CP1 Nuclear Medicine, Musculoskeletal System, Planar Nuclear Medicine Imaging (ICD-10-PCS; principal; 2018-04-14)
PROC: 0JH63XZ Insertion of Tunneled Vascular Access Device into Chest Subcutaneous Tissue and Fascia, Percutaneous Approach (ICD-10-PCS; 2018-04-16)
PROC: 02H633Z Insertion of Infusion Device into Right Atrium, Percutaneous Approach (ICD-10-PCS; 2018-04-16)
PROC: B244ZZZ Ultrasonography of Right Heart (ICD-10-PCS; 2018-04-16)
PROC: 5A1D70Z Performance of Urinary Filtration, Intermittent, Less than 6 Hours Per Day (ICD-10-PCS; 2018-04-16)
PROC: 5A1D70Z Performance of Urinary Filtration, Intermittent, Less than 6 Hours Per Day (ICD-10-PCS; 2018-04-23)
PROC: 5A1D70Z Performance of Urinary Filtration, Intermittent, Less than 6 Hours Per Day (ICD-10-PCS; 2018-04-25)
PROC: 5A1D70Z Performance of Urinary Filtration, Intermittent, Less than 6 Hours Per Day (ICD-10-PCS; 2018-04-27)
PROC: 5A1D70Z Performance of Urinary Filtration, Intermittent, Less than 6 Hours Per Day (ICD-10-PCS; 2018-04-30)
DX: N17.0 Acute kidney failure with tubular necrosis (principal); J96.90 Respiratory failure, unspecified, unspecified whether with hypoxia or hypercapnia; N39.0 Urinary tract infection, site not specified; E87.1 Hypo-osmolality and hyponatremia; N18.4 Chronic kidney disease, stage 4 (severe); E11.22 Type 2 diabetes mellitus with diabetic chronic kidney disease; A08.4 Viral intestinal infection, unspecified; F32.9 Major depressive disorder, single episode, unspecified; B96.5 Pseudomonas (aeruginosa) (mallei) (pseudomallei) as the cause of diseases classified elsewhere; E86.0 Dehydration; N13.9 Obstructive and reflux uropathy, unspecified; D89.2 Hypergammaglobulinemia, unspecified; D63.8 Anemia in other chronic diseases classified elsewhere; Z60.2 Problems related to living alone; G89.29 Other chronic pain; N40.1 Benign prostatic hyperplasia with lower urinary tract symptoms; I25.10 Atherosclerotic heart disease of native coronary artery without angina pectoris; R13.10 Dysphagia, unspecified; Z66 Do not resuscitate; I25.2 Old myocardial infarction; Z79.4 Long term (current) use of insulin; Z79.899 Other long term (current) drug therapy; Z86.73 Personal history of transient ischemic attack (TIA), and cerebral infarction without residual deficits; Z87.891 Personal history of nicotine dependence; Z75.1 Person awaiting admission to adequate facility elsewhere
CPT/HCPCS: 36415; 36556; 36558; 71045; 76775; 76937; 77001; 77075; 78306; 80048; 80053; 80320; 81001; 82570; 82595; 82784; 82948; 83036; 83615; 83690; 83735; 84100; 84133; 84155; 84156; 84165; 84166; 84300; 84439; 84443; 84484; 85025; 85027; 85610; 85730; 86160; 86334; 86335; 86704; 86705; 87070; 87077; 87088; 87186; 87207; 87340; 93005; 94640; 94760; 96361; 96374; 97110; 97116; 97161; 97530; 99152; 99153; 99285; A6219; A9270; A9503; C1751; C1769; C1894; G0257; G0378; J0696; J0713; J0885; J1644; J1815; J1956; J2001; J2150; J2250; J2405; J3010; J3430; J7030

== ENCOUNTER 2018-05-05 17:29 | Inpatient (IN) | payer MEDICARE ==
[~2018-05-05] VITALS: Ht 180.3 cm; Wt 77.0 kg
[~2018-05-05 17:29] MED LIST changes: -ACET-2119 PO; -BACI28.33 TOP; +INSU100V11 SQ; -INSU100V12 SQ; +METF500T PO; -MYCOL15CR TOP; +SEVE800T8 PO
--- NOTE | 2018-05-05 18:25 | NUR ---
PT REQUESTING TO SIT IN CHAIR. HE HAD A FLAL TODAY AND IS HURTING ON BUTTOCK.
[2018-05-05] MEDS ORDERED: acetaminophen 325mg tablet PO PRN (18:50)
[2018-05-05] MEDS ORDERED: ondansetron/PF 4mg/2ml inj IV PRN (18:50)
[2018-05-05 20:16] LABS: BASOPHILS % (AUTO) 0.3 % (0-1); EOSINOPHILS # (AUTO) 0.3 X10'3 (0-0.9); EOSINOPHILS % (AUTO) 5.5 % (0-6); HEMOGLOBIN 9.5 g/dl (14.0-17.9); LYMPHOCYTES # (AUTO) 0.6 X10'3 (1.1-4.8); LYMPHOCYTES % (AUTO) 11.5 % (21-51); MEAN CORPUSCULAR HEMOGLOBIN 30.2 PG (27.0-31.0); MEAN CORPUSCULAR HGB CONC 33.8 % (33.0-36.5); MEAN CORPUSCULAR VOLUME 89.3 FL (78-98); MEAN PLATELET VOLUME 7.1 FL (7.4-10.4); MONOCYTES # (AUTO) 0.6 X10'3 (0-0.9); MONOCYTES % (AUTO) 10.9 % (2-12); NEUTROPHILS # (AUTO) 3.9 X10'3 (1.8-7.7); NEUTROPHILS % (AUTO) 71.8 % (42-75); PLATELET COUNT 266 X10'3 (140-440); RED BLOOD COUNT 3.13 X10'6 (4.70-6.10); RED CELL DISTRIBUTION WIDTH 19.8 % (11.5-14.5); WHITE BLOOD COUNT 5.4 X10'3 (4.5-11.0)
[2018-05-05 20:34] LABS: ALANINE AMINOTRANSFERASE 12 U/L (12-78); ALBUMIN 1.3 G/DL (3.4-5.0); ALBUMIN/GLOBULIN RATIO 0.2 (1.1-1.5); ALKALINE PHOSPHATASE 95 IU/L (46-116); BILIRUBIN,TOTAL 0.8 MG/DL (0.1-1.0); BLOOD UREA NITROGEN 6 MG/DL (7-18); BUN/CREATININE RATIO 4.2 (5.4-32.0); CALCIUM 8.3 MG/DL (8.5-10.1); CREATININE 1.42 MG/DL (0.60-1.10); GLUCOSE 101 MG/DL (70-104); MAGNESIUM 1.7 MG/DL (1.5-2.4); TOTAL CARBON DIOXIDE 25.8 MMOL/L (24-32); TOTAL PROTEIN 8.7 G/DL (6.4-8.2); eGFR 48 ML/MIN
[2018-05-05 20:48] LABS: ANION GAP 20 (8-16); CHLORIDE 83 MMOL/L (99-107); POTASSIUM 4.1 MMOL/L (3.5-5.1); SODIUM 129 MMOL/L (135-145)
[2018-05-05 20:51] LABS: ASPARTATE AMINO TRANSFERASE 35 U/L (10-37)
[2018-05-05 21:15] LABS: PHOSPHORUS 1.1 MG/DL (2.3-4.5)
--- NOTE | 2018-05-05 21:31 | NUR ---
NOTIFIED MARCIO LEE OF PHOS 1.1. MARCIO LEE REPORTED THAT HE DOES NOT USUALLY REPLACE PHOS. NO FURTHER ORDERS AT THIS TIME.
[2018-05-05 23:02] LABS: INR 1.3 INR; PARTIAL THROMBOPLASTIN TIME 34 SECONDS (22-32); PROTHROMBIN TIME 13.4 SECONDS (9.0-12.0)
[2018-05-06 07:29] LABS: INR 1.3 INR; PARTIAL THROMBOPLASTIN TIME 34 SECONDS (22-32); PROTHROMBIN TIME 13.4 SECONDS (9.0-12.0)
[2018-05-06 07:30] LABS: ALANINE AMINOTRANSFERASE 9 U/L (12-78); ALBUMIN 1.3 G/DL (3.4-5.0); ALBUMIN/GLOBULIN RATIO 0.2 (1.1-1.5); ALKALINE PHOSPHATASE 89 IU/L (46-116); ANION GAP 13 (8-16); ASPARTATE AMINO TRANSFERASE 23 U/L (10-37); BILIRUBIN,TOTAL 0.5 MG/DL (0.1-1.0); BLOOD UREA NITROGEN 9 MG/DL (7-18); BUN/CREATININE RATIO 4.6 (5.4-32.0); CALCIUM 8.8 MG/DL (8.5-10.1); CHLORIDE 98 MMOL/L (99-107); CREATININE 1.95 MG/DL (0.60-1.10); GLUCOSE 87 MG/DL (70-104); POTASSIUM 4.1 MMOL/L (3.5-5.1); SODIUM 137 MMOL/L (135-145); TOTAL CARBON DIOXIDE 26.5 MMOL/L (24-32); TOTAL PROTEIN 8.2 G/DL (6.4-8.2); eGFR 33 ML/MIN
[2018-05-06 07:38] LABS: BASOPHILS % (AUTO) 0.4 % (0-1); EOSINOPHILS # (AUTO) 0.5 X10'3 (0-0.9); EOSINOPHILS % (AUTO) 11.9 % (0-6); HEMATOCRIT 31.2 % (42.0-52.0); HEMOGLOBIN 10.3 g/dl (14.0-17.9); LYMPHOCYTES # (AUTO) 0.6 X10'3 (1.1-4.8); LYMPHOCYTES % (AUTO) 14.2 % (21-51); MEAN CORPUSCULAR HGB CONC 32.9 % (33.0-36.5); MEAN CORPUSCULAR VOLUME 91.1 FL (78-98); MEAN PLATELET VOLUME 6.7 FL (7.4-10.4); MONOCYTES # (AUTO) 0.6 X10'3 (0-0.9); MONOCYTES % (AUTO) 13.2 % (2-12); NEUTROPHILS # (AUTO) 2.6 X10'3 (1.8-7.7); NEUTROPHILS % (AUTO) 60.3 % (42-75); PLATELET COUNT 229 X10'3 (140-440); RED BLOOD COUNT 3.42 X10'6 (4.70-6.10); RED CELL DISTRIBUTION WIDTH 20.4 % (11.5-14.5); WHITE BLOOD COUNT 4.3 X10'3 (4.5-11.0)
[2018-05-06] MEDS ORDERED: LIDOcaine 1%/PF 5ML 10 MG/ML VIAL ONE (08:27)
--- NOTE | 2018-05-06 10:05 | NUR ---
Patients transportation called and he states that he will be at the hosptal to black pickler John with in the hour.
[2018-05-06 10:15] VITALS: BP 119/60
== END 2018-05-06 10:45 | disposition home or self-care (01) | DRG 314 ==
LOC: ER 17:30 → ED HOLD 18:46
PROVIDERS: ADMIT Physician Assistant; ATTEND Emergency Medicine
PROC: 0JPT0XZ Removal of Tunneled Vascular Access Device from Trunk Subcutaneous Tissue and Fascia, Open Approach (ICD-10-PCS; principal; 2018-05-06)
PROC: 02PA33Z Removal of Infusion Device from Heart, Percutaneous Approach (ICD-10-PCS; 2018-05-06)
DX: T82.43XA Leakage of vascular dialysis catheter, initial encounter (principal); N18.6 End stage renal disease; E11.22 Type 2 diabetes mellitus with diabetic chronic kidney disease; I25.10 Atherosclerotic heart disease of native coronary artery without angina pectoris; L89.309 Pressure ulcer of unspecified buttock, unspecified stage; F32.9 Major depressive disorder, single episode, unspecified; Y84.1 Kidney dialysis as the cause of abnormal reaction of the patient, or of later complication, without mention of misadventure at the time of the procedure; G89.29 Other chronic pain; Z79.4 Long term (current) use of insulin; Z86.73 Personal history of transient ischemic attack (TIA), and cerebral infarction without residual deficits; I25.2 Old myocardial infarction; Z99.2 Dependence on renal dialysis; Z79.899 Other long term (current) drug therapy; Z79.84 Long term (current) use of oral hypoglycemic drugs; Y92.89 Other specified places as the place of occurrence of the external cause
CPT/HCPCS: 36415; 36589; 71045; 80053; 82948; 83735; 84100; 85025; 85610; 85730; 99285; G0378; J2001